=== PATIENT | male | born 1950 | race Caucasian/White ===

== ENCOUNTER 2016-08-03 15:57 | Observation (INO) ==
--- NOTE | 2016-08-03 18:03 | EKG Report ---
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
[2016-08-03 18:08] LABS: Basophils # 0.1 10*3/uL (0.0-0.2); Basophils % 0.7 % (0.0-0.8); Eosinophils % 0.5 % (0.00-10.9); Hematocrit 41.4 VOL% (42.0-52.0); Hemoglobin 13.7 GM/DL (14.0-18.0); Immature Granulocytes % 0.4 %; Immature Granulocytes Absolute 0.03 #; Lymphocytes # 1.6 10*3/uL (1.4-4.0); Lymphocytes % 19.6 % (21.2-54.2); Mean Corpuscular HGB Conc 33.1 GM/DL (32-36); Mean Corpuscular Hemoglobin 28 PG (27-34); Mean Corpuscular Volume 84.7 FL (87-102); Mean Platelet Volume 9.9 FL (9.6-12.0); Monocytes # 0.6 10*3/uL (0.11-0.8); Monocytes % 7.1 % (1.7-12.7); Neutrophils # 5.9 10*3/uL (1.4-7.4); Neutrophils % 71.7 % (38.7-73.9); Platelet Count 229 T/CUMM (130-400); Red Blood Count 4.89 MC/CUMM (3.8-5.5); Red Cell Distribution Width 14.5 % (9.3-17.3); White Blood Count 8.3 T/CUMM (4-12)
[2016-08-03 18:47] LABS: Alanine Aminotransferase 13 U/L (16-61); Albumin 3.4 G/DL (3.4-5.0); Alkaline Phosphatase 50 U/L (45-117); Aspartate Amino Transferase 15 U/L (0-37); Bilirubin,Total < 0.39 MG/DL (0.2-1.0); Blood Urea Nitrogen 10 MG/DL (7-18); Calcium 8.4 MG/DL (8.5-10.1); Glucose 100 MG/DL (74-106); Osmolality,Calculated 281.1 MOS/KG (273-304); Potassium 3.9 MMOL/L (3.5-5.1); Sodium 142 MMOL/L (136-145); Total Protein 6.9 G/DL (6.4-8.3); Troponin I Only < 0.015 NG/ML (0.00-0.045)
[2016-08-03] MEDS ORDERED: MAGNESIUM SULF RIDER 4 GM in PREMIX 1 EACH IV PRN (18:51)
[2016-08-03] MEDS ORDERED: MAGNESIUM SULF RIDER 2 GM in PREMIX 1 EACH IV PRN (18:51)
[2016-08-03] MEDS ORDERED: DEXTROSE 50% 25 GM/50 ML VIAL IV PRN (18:51)
[2016-08-03] MEDS ORDERED: GLUCAGON 1 MG VIAL IM PRN (18:51)
--- NOTE | 2016-08-03 19:20 | Emergency Department Note ---
IChandana Brittany, am scribing for, and in the presence of, Maureen Carrero DO 17:42. IMagan Whitney, DO, personally performed the services described in this documentation, ascribed by Karlie Ellington in my presence, and it is both accurate and complete 920 . Arrival - Arrival Chief Complaint: Syncope Stated Complaint: TRANSFER FROM [facility] Nursing Triage Note: TRANSFER FROM [facility] FROM [facility] FOR SYNCOPAL EPISODE Mode of Arrival: Stretcher Limitations: No Limitations Source: Patient, Significant other, RN Notes Reviewed Time Seen by Provider: 08/03/16 17:16 - History of Present Illness HPI Narrative: Patient is a 66 y/o white male presenting to the ED by EMS from [facility] [place], [place] for further evaluation of syncopal episode that occurred earlier today. Patient is unable to recall episode earlier so his at the bedside will provide the history. reports that patient and her son were outside working on a water leak at their [facility] trailer. In the middle of getting their son to run the water once again, patient was standing propped up against their [facility] trailer. She states that she momentarily took her eyes off of him to do something and upon turning around, patient had passed out, fell to the ground and hit the right side of his head. She estimates that patient was out for a minute or so and upon coming to, was confused briefly. and son then called EMS with which they presented to [facility] ER. Patient reports that he was seen earlier this week at [facility] for Chest Pain and Shortness of Breath in which he had a full workup and all was found to be negative and he was DC'd home. Patient states he did feel "lightheaded" prior to syncopal episode occurring, but denies experiencing any chest pain or shortness of breath. Patient reports having a severe right sided headache at current and contributes this to hitting his head during the syncopal episode earlier. Patient has a history of Pacemaker placement per Dr. Reid secondary to bradycardia. Patient reports that earlier in the week he did have an episode of polyuria which is unusual for him and is unsure if this was attributed to episode of chest pain experienced. He denies any urination problems at current. At the transferring facility patient was noted to have a negative head CT, but was transferred here for further evaluation and placement on heart monitor. reports that since patient lost his job in March he's had trouble with fatigue. Patient denies history of MD. He is currently on an ASA a day. Patient confirms compliance with medications. Patient reports a Colon Rupture sometime last year. He was placed on Metoprolol for PVC's experienced after Pacemaker placement. He has no other complaint/pain. Onset (ago): unknown Consistency: now resolved Allergies/Adverse Reactions: Allergies Allergy/AdvReac Type Severity Reaction Status Date / Time No Known Allergies Allergy Unverified 08/03/16 15:59 Home Medications: Home Medications Medication Instructions Recorded Confirmed Type Atorvastatin [Lipitor] 10 mg PO QAM 02/05/15 08/03/16 History Fenofibrate [Tricor] 145 mg PO BEDTIME 02/05/15 08/03/16 History Losartan [Cozaar] 50 mg PO QAM 02/05/15 08/03/16 History Tamsulosin [Flomax] 0.4 mg PO BEDTIME 02/05/15 08/03/16 History metFORMIN [Glucophage] 500 mg PO BEDTIME 02/05/15 08/03/16 History Metoprolol Succinate 25 mg PO BID 12/12/15 08/03/16 History Aspirin EC Tab 81 mg PO QAM 01/10/16 08/03/16 History Theophylline ER Cap (24 Hr) 200 mg PO BEDTIME 01/19/16 08/03/16 History [Jaden-24] Polyethylene Glycol Powder 17 gm PO BID powder 01/25/16 08/03/16 Rx [Miralax] glyBURIDE [Glyburide] 5 mg PO DAILY 08/03/16 08/03/16 History Review of System - Review of System 12 point system: reviewed and no additional remarkable complaints except as stated - Review of System Constitutional: Absent: chills, fever Eyes: Absent: vision change Head/Ears/Nose/Throat: Absent: nasal drainage, sore throat Respiratory: Absent: respiratory distress Cardiovascular: Present: syncope. Absent: chest pain, palpitations Gastrointestinal: Absent: abdominal pain, nausea, vomiting, diarrhea, constipation Genitourinary male: Absent: urgency, dysuria, frequency Musculoskeletal: Absent: arm pain, back pain, leg pain, neck pain Skin: Absent: rash Neurological: Present: as per HPI, headache, confusion. Absent: numbness, paresthesias Psychiatric: Absent: anxiety, depression Hematological/Lymphatic: Absent: easy bleeding, easy bruising Medical,Surgical,& Family Hx - Medical History Cardio: History of: Hypertension, Pacemaker (january 2015), Cardiovascular Problems (ablation) HEENT: History of: Ear Problem (REPAIR OF RUPTURED EAR DRUM TO LEFT SIDE), Eye Problem (cataracts) Endocrine: History of: Diabetes Mellitus (NIDDM) (control with pill), Dyslipidemia Respiratory: History of: Obstructive Sleep Apnea Genitourinary: History of: Kidney Stones (about 27 years ago), Prostate Problems (enlarge prostate diagnosed 30 years ago) Gastrointestinal: History of: GI Problems (bowel rupture 3yrs ago) Musculoskeletal: History of: Back/Neck Problems (neck surgery) - Surgical History Thoracic Surgeries: Patient denies;: Organ Transplant, Lobectomy Neurologic Surgeries: Patient denies: Neurologic Surgery HEENT Surgeries: Surgical HX of: Thyroid Surgery, Tonsilectomy & Adenoidectomy Comment Only: Eye Surgery (catarack surgery) Abdominal Surgeries: Surgical HX of: Appendectomy, Cholecystectomy Reproductive Surgeries: Comment Only: Prostate Surgery (enlarger prostate) Orthopedic Surgeries: Surgical HX of;: Orthopedic Surgery (left knee repair) - Family History Family History: Reports;: Family Cancer (father), Family Diabetes (mother), Family Heart Disease (mother), Family Hypertension (mother), Family Stroke ( father, mother) Denies;: Family Anesthesia Reaction, Family Psychiatric Problems - Social History Smoking Status: Former smoker Frequency of Alcohol Use: None Type of Drug Use: None Exam Vital Signs: Vital Signs Temperature 96.1 F L 08/03/16 15:59 Pulse Rate 68 08/03/16 15:59 Respiratory Rate 22 08/03/16 15:59 Blood Pressure 137/81 08/03/16 15:59 O2 Sat by Pulse Oximetry 99 08/03/16 15:59 - General General appearance: alert, in no apparent distress - Head Head exam: Present: atraumatic, normocephalic, normal inspection - Eye Eye exam: Present: PERRL, EOMI, nystagmus (left beating nystagmus), other (head impulse test negative, doll's eye test normal). Absent: normal appearance - ENT ENT exam: Present: normal exam, normal oropharynx - Neck Neck exam: Present: normal inspection, full ROM, trachea midline - Expanded Expanded Neck Exam Neck exam focused ED: Absent: JVD - Chest Chest inspection: Present: normal inspection, symmetric chest wall rise - Respiratory Respiratory exam: Present: normal lung sounds bilaterally. Absent: rales, rhonchi, wheezes - Cardiovascular Cardiovascular exam: Present: regular rate, normal rhythm, normal heart sounds. Absent: murmur, rubs, gallop, JVD - Abdominal Exam Abdominal exam: Present: soft, normal bowel sounds. Absent: distention, tenderness - Extremities Exam Extremities exam: Present: normal inspection. Absent: pedal edema - Back Exam Back exam: Present: normal inspection - Neurological Exam Neurological exam: Present: alert, oriented X3, CN II-XII intact. Absent: motor sensory deficit - Psychiatric Psychiatric exam: Present: normal affect, normal mood - Skin Skin exam: Present: warm, dry, intact, normal color Course Course Narrative: Discussed the case with patient at length. He appears stable currently. However his story is very concerning given he had recent chest pain on Friday and now has syncope. His chart review reveals sick sinus syndrome which is why he has a pacemaker. I have ordered labs here. And discussed the case with Dr. Esparza the overnight houseperson online content coordinator. He will be admitted for obs. - Reevaluation(s) Reevaluation #1: Patient is still doing well still no pain - Consultations Consultation #1: Cardiology Dr. Esparza Results - Labs CBC & BMP: 08/03/16 17:56 08/03/16 17:56 Lab Results: I have reviewed the patients labs Labs: Laboratory Tests 08/03/16 17:56 WBC 8.3 RBC 4.89 Hgb 13.7 L Hct 41.4 L MCV 84.7 L Plt Count 229 Lymph % (Auto) 19.6 L Laboratory Tests 08/03/16 08/03/16 08/03/16 17:56 17:56 17:56 Sodium 142 Potassium 3.9 Chloride 111 H Carbon Dioxide 25 BUN 10 Creatinine 1.30 Glucose 100 Calcium 8.4 L AST 15 ALT 13 L Total Creatine Kinase 65 Troponin I < 0.015 B-Natriuretic Peptide 33 Albumin/Globulin Ratio 0.9 L Theophylline 4.9 L Laboratory Tests 08/03/16 17:56 Sodium 142 Potassium 3.9 Chloride 111 H Carbon Dioxide 25 BUN 10 Creatinine 1.30 Calcium 8.4 L ALT 13 L Total Creatine Kinase 65 Troponin I < 0.015 Total Protein 6.9 Albumin/Globulin Ratio 0.9 L - Diagnostic Findings Procedure: Chest x-ray: image reviewed by me, report reviewed by me (normal from OSH) Disposition Clinical Impression: Syncope and collapse Case discussed with: patient Disposition: Still a Patient Condition: Stable
[2016-08-03] MEDS: ENOXAPARIN 40 MG/0.4 ML SYRINGE SUBCUT SCH (21:14)
[2016-08-03 22:02] LABS: Troponin I Only < 0.015 NG/ML (0.00-0.045)
[2016-08-04 05:16] LABS: Troponin I Only < 0.015 NG/ML (0.00-0.045)
--- NOTE | 2016-08-04 09:38 | Cardiology History & Physical ---
Assessment and Plan (1) Syncope and collapse Status: Acute Assessment and plan: 1. 66-year-old overweight WF with hypertension, diabetes, JESSICA (reports he uses his CPAP regularly), history of diverticulitis with significant colon removal for this and follow-up surgeries, chronic orthostasis with episode of syncope January 2015 when he is noted to have some modest bradycardia and had dual- chamber pacemaker placed by Dr. Qureshi for SSS (reportedly his orthostasis/ dyspnea improved after that), who now presents with syncopal episode with prodrome of dizziness. 2. Chronic chest discomfort with exertional component, reportedly had unremarkable heart catheterization at [facility] about 2014; please obtain records ( the report Dr. Reid got these in the past from [facility], but they are not available , I do not see them the external record on our EMR, or in Dr. Reid's note at the office) 3. Flat and upright blood pressure and heart rate here showed that he is tilt negative currently. 4. Interrogate pacemaker to evaluate if he is having atrial fibrillation episodes, and to ensure it is working properly 5. Pulmonary hypertension with PA pressure over 60 reportedly found to [facility], but last echo here shows PA pressures in the 30s though there was some mild right-sided enlargement. 6. Chronic dyspnea on exertion reportedly improved after pacemaker placement and after starting theophylline; he is a very remote smoker per 7. Consider GI consult; if no other cause for his symptoms can be found, I am uncertain whether he had enough colon removed, that it could explain some of his symptoms? Current Visit: Yes (2) Chest pain Status: Acute Current Visit: No (3) Diabetes mellitus Status: Chronic Current Visit: No (4) Hypertension Status: Chronic Current Visit: No (5) JESSICA (obstructive sleep apnea) Status: Chronic Current Visit: No History of Present Illness Chief complaint: syncope History of present illness: Mr. Davis is a 66 year old male who was walking around in his house and developed dizziness and subsequently woke up on the floor. Apparently had fairly brief syncope. He felt washed out a week when he awakened. Several days prior he had been in the emergency room at an outside facility with chest discomfort, but he has had none in the last couple of days. After taking further history, he has had dyspnea on exertion and exertional chest discomfort for years, and underwent heart catheterization wrote [facility] reportedly in 2014 which showed "no significant blockage". In January 2015 he underwent pacemaker placement by Dr. Qureshi for sick sinus syndrome. It appears he had some modest bradycardia and that pacemaker was placed due to his syncope. On further history is also reportedly had atrial fibrillation with RVR causing similar episodes about 15 years ago when he had ablation by Dr. Webster in [place]. I also note he had extensive history of problems with diverticulitis and eventually had a significant amount of colon removed by Dr. Irma Rivas. He also had follow-up repeat surgeries for this and will saw Dr. Yu when at one point he had some ischemia in his intestines. He had pulmonary hypertension and echo at [facility], but last one here is pulmonary pressures were not that high being in the low 30s systolic range. He did have a little right ventricular enlargement and has no history of PE or DVT. He denies any history of TIA or stroke. Denies any history of blood clots or bleeding problems. He reports some chronic orthostasis. 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 Home Medications Medication Instructions Recorded Confirmed Type Atorvastatin [Lipitor] 10 mg PO QAM 02/05/15 08/03/16 History Fenofibrate [Tricor] 145 mg PO BEDTIME 02/05/15 08/03/16 History Losartan [Cozaar] 50 mg PO QAM 02/05/15 08/03/16 History Tamsulosin [Flomax] 0.4 mg PO BEDTIME 02/05/15 08/03/16 History metFORMIN [Glucophage] 500 mg PO BEDTIME 02/05/15 08/03/16 History Metoprolol Succinate 25 mg PO BID 12/12/15 08/03/16 History Aspirin EC Tab 81 mg PO QAM 01/10/16 08/03/16 History Theophylline ER Cap (24 Hr) 200 mg PO BEDTIME 01/19/16 08/03/16 History [Jaden-24] Polyethylene Glycol Powder 17 gm PO BID powder 01/25/16 08/03/16 Rx [Miralax] glyBURIDE [Glyburide] 5 mg PO DAILY 08/03/16 08/03/16 History Allergies Allergy/AdvReac Type Severity Reaction Status Date / Time No Known Allergies Allergy Unverified 08/03/16 15:59 Medical,Surgical,& Family Hx - Medical History Cardio: History of: Hypertension, Pacemaker (january 2015), Cardiovascular Problems (ablation) HEENT: History of: Ear Problem (REPAIR OF RUPTURED EAR DRUM TO LEFT SIDE), Eye Problem (cataracts) Endocrine: History of: Diabetes Mellitus (NIDDM) (control with pill), Dyslipidemia Respiratory: History of: Obstructive Sleep Apnea Genitourinary: History of: Kidney Stones (about 27 years ago), Prostate Problems (enlarge prostate diagnosed 30 years ago) Gastrointestinal: History of: GI Problems (bowel rupture 3yrs ago) Musculoskeletal: History of: Back/Neck Problems (neck surgery) - Surgical History Thoracic Surgeries: Patient denies;: Organ Transplant, Lobectomy Neurologic Surgeries: Patient denies: Neurologic Surgery HEENT Surgeries: Surgical HX of: Thyroid Surgery, Tonsilectomy & Adenoidectomy Comment Only: Eye Surgery (catarack surgery) Abdominal Surgeries: Surgical HX of: Abdominal Surgery (repair of: Perforation with colostomy and subsequent reversal), Appendectomy, Cholecystectomy Reproductive Surgeries: Comment Only: Prostate Surgery (enlarger prostate) Orthopedic Surgeries: Surgical HX of;: Orthopedic Surgery (left knee repair) - Family History Family History: Reports;: Family Cancer (father), Family Diabetes (mother), Family Heart Disease (mother), Family Hypertension (mother), Family Stroke ( father, mother) Denies;: Family Anesthesia Reaction, Family Psychiatric Problems - Social History Smoking Status: Former smoker Frequency of Alcohol Use: None Type of Drug Use: None Cardiology Physical Exam - Constitutional Vitals: Vital Signs Temp Pulse Resp BP Pulse Ox 97.8 F 60 20 118/62 97 08/04/16 08:00 08/04/16 08:00 08/04/16 08:00 08/04/16 08:00 08/04/16 08:00 Intake and Output 08/03/16 08/04/16 08/04/16 23:59 07:59 15:59 Intake Total 250 / 250 Output Total 1504 / 1504 Balance -1254 / -1254 Intake: Oral 250 / 250 Output: Urine 1504 / 1504 Other: Voiding Method Urinal Weight 108.862 kg 108.862 kg Patient Weight 08/04/16 23:59 Weight 108.862 kg General appearance: no acute distress, over weight - Head Head exam: Present: normal inspection, normocephalic, atraumatic - Neck Neck exam: Present: normal inspection - Respiratory Respiratory exam: Present: clear to auscultation bilaterally. Absent: stridor, wheezes - Cardiovascular Cardiovascular exam: Present: regular rate and rhythm. Absent: diastolic murmur , rubs, systolic murmur - GI/Abdominal GI/Abdominal exam: Present: soft. Absent: tenderness - Extremities Exam Extremities exam: Absent: edema - Neurological Exam Neurological exam: Present: alert, oriented X3, normal gait Result/EKG - Labs CBC & BMP: 08/03/16 17:56 08/03/16 17:56 Labs: Laboratory Results - last 24 hr 08/03/16 08/03/16 08/04/16 20:30 21:22 04:16 POC Glucose 87 Total Creatine Kinase 64 80 D CK-MB (CK-2) < 1.0 1.5 Troponin I < 0.015 < 0.015
[2016-08-04] MEDS: SODIUM CHLORIDE 0.9% 1,000 ML IV SCH ×2 (11:40→21:57)
[2016-08-04] MEDS: ASPIRIN EC 81 MG TABLET PO SCH (11:40)
--- NOTE | 2016-08-04 20:01 | Event Note ---
Mr. Davis's pacemaker interrogation showed no evidence of atrial fibrillation or tachycardia and was complete normal function of his pacemaker. There is not seem to be any suggestion that his syncope was caused by cardiac etiology. Although he has had some orthostasis, he was tilt negative on evaluation at the hospital today.
[2016-08-04] MEDS ORDERED: METOPROLOL SUCCINATE XL 25 MG TABLET PO SCH (21:00)
[2016-08-04] MEDS: ENOXAPARIN 40 MG/0.4 ML SYRINGE SUBCUT SCH (22:08)
[2016-08-04] MEDS: TAMSULOSIN 0.4 MG CAPSULE PO SCH (22:10)
[2016-08-04] MEDS: metFORMIN 500 MG TABLET PO SCH (22:10)
[2016-08-04] MEDS: THEOPHYLLINE ER (24 HR) 200 MG CAPSULE PO SCH (22:10)
[2016-08-04] MEDS: POLYETHYLENE GLYCOL POWDER 17 GM PACK PO SCH (22:11)
[2016-08-04] MEDS: FENOFIBRATE 145 MG TABLET PO SCH (22:36)
[2016-08-05] MEDS: ASPIRIN EC 81 MG TABLET PO SCH (08:34)
[2016-08-05] MEDS: METOPROLOL SUCCINATE XL 25 MG TABLET PO SCH (08:34)
[2016-08-05] MEDS: POLYETHYLENE GLYCOL POWDER 17 GM PACK PO SCH ×2 (08:34→20:20)
[2016-08-05] MEDS: SODIUM CHLORIDE 0.9% 1,000 ML IV SCH ×2 (08:34→18:26)
[2016-08-05] MEDS: glyBURIDE 5 MG TABLET PO SCH (08:35)
[2016-08-05] MEDS: ATORVASTATIN 10 MG TABLET PO SCH (08:35)
[2016-08-05] MEDS ORDERED: LOSARTAN 50 MG TABLET PO SCH (09:00)
--- NOTE | 2016-08-05 14:15 | Cardiology Progress Note ---
Cardiology - PN: Subj Interval history: Cardiology note 66-year-old man transferred from the [facility] ER August 03 with weakness no energy and near syncope. Status post dual-chamber pacemaker January [address] Reid Patient had negative heart cath at [facility] [place] [address] Mancilla. Pacemaker interrogation yesterday showed normal pacing and sensing and no episodes of recurrent atrial fib. Monitor to date has been benign. Blood pressure is 130/74 in the right arm by me. O2 sat 99 on 2 L cannula. Decreased breath sounds but clear. Regular rhythm no murmur or gallop. Abdomen soft benign No leg edema He does have obstructive sleep apnea and wears a CPAP mask 90. 6 feet 2 inches tall 242 pounds. Patient has lost 20 pounds since last spring. Status post partial colectomy by Dr. Solis for diverticulitis. Long-standing hypertension. 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 He had near syncope with chest pain on Friday which prompted the ER visit. Lab data White count 8.3 hemoglobin 13.7 hematocrit 41.4 MCV 84.7 Sodium 142 potassium 3.9 chloride 111 CO2 25 BUN 10 creatinine 1.30 negative troponin Theophylline 4.9 Plan Monitor Check blood pressure standing and supine Exercise cardiac stress test in a.m. CPAP mask nightly. Probable home tomorrow\ Dr. Darrell Lynn in [facility] local physician Exam (Progress Note) - Constitutional Vitals: Period Temp Pulse Resp BP Sys/Oseguera Pulse Ox Last 24 Hr 97.2 F-98.3 F 60-71 18-20 100-141/59-71 96-99 Result/EKG - Labs CBC & BMP: 08/03/16 17:56 08/03/16 17:56 Labs: Laboratory Results - last 24 hr 08/04/16 08/05/16 22:00 07:51 POC Glucose 85 90
[2016-08-05] MEDS: THEOPHYLLINE ER (24 HR) 200 MG CAPSULE PO SCH (20:19)
[2016-08-05] MEDS: metFORMIN 500 MG TABLET PO SCH (20:19)
[2016-08-05] MEDS: FENOFIBRATE 145 MG TABLET PO SCH (20:19)
[2016-08-05] MEDS: ENOXAPARIN 40 MG/0.4 ML SYRINGE SUBCUT SCH (20:19)
[2016-08-05] MEDS: TAMSULOSIN 0.4 MG CAPSULE PO SCH (20:19)
[2016-08-06] MEDS: SODIUM CHLORIDE 0.9% 1,000 ML IV SCH ×2 (04:13→14:51)
[2016-08-06 06:07] LABS: Basophils # 0.1 10*3/uL (0.0-0.2); Basophils % 0.9 % (0.0-0.8); Eosinophils # 0.2 10*3/uL (0.0-0.87); Eosinophils % 3.2 % (0.00-10.9); Hematocrit 39.6 VOL% (42.0-52.0); Hemoglobin 13.2 GM/DL (14.0-18.0); Immature Granulocytes % 0.2 %; Immature Granulocytes Absolute 0.01 #; Lymphocytes # 1.5 10*3/uL (1.4-4.0); Lymphocytes % 28.6 % (21.2-54.2); Mean Corpuscular HGB Conc 33.3 GM/DL (32-36); Mean Corpuscular Hemoglobin 28 PG (27-34); Mean Platelet Volume 10.1 FL (9.6-12.0); Monocytes # 0.5 10*3/uL (0.11-0.8); Monocytes % 9.7 % (1.7-12.7); Neutrophils # 3.1 10*3/uL (1.4-7.4); Neutrophils % 57.4 % (38.7-73.9); Platelet Count 201 T/CUMM (130-400); Red Blood Count 4.66 MC/CUMM (3.8-5.5); Red Cell Distribution Width 14.3 % (9.3-17.3); White Blood Count 5.4 T/CUMM (4-12)
[2016-08-06 06:41] LABS: Osmolality,Calculated 277.3 MOS/KG (273-304); Potassium 4.1 MMOL/L (3.5-5.1)
[2016-08-06] MEDS ORDERED: REGADENOSON 0.4 MG/5 ML SYRINGE IV ONE (09:18)
[2016-08-06] MEDS: glyBURIDE 5 MG TABLET PO SCH (10:32)
--- NOTE | 2016-08-06 10:39 | Cardiology Progress Note ---
<Samantha Lee E - Last Filed: 08/06/16 10:28> Assessment and Plan - Time spent with patient Time spent with patient: Greater than 30 minutes (1) Hypertension Status: Chronic Assessment and plan: Adequately controlled. Current Visit: No (2) Diabetes mellitus Status: Chronic Assessment and plan: Continue current plan of care Current Visit: No (3) JESSICA (obstructive sleep apnea) Status: Chronic Assessment and plan: Uses sleep device appropriately. Continue current plan of care Current Visit: No (4) Syncope and collapse Status: Acute Assessment and plan: No additional syncope since admission. Patient reports that it is positional and when he stands abruptly is when he experiences the syncopal episodes. However, if he takes his time standing up, although he gets lightheaded and he does not experience syncope. His orthostatic vital signs are normal. He does take Flomax each evening. Query as to whether this may be causing some orthostasis. Current Visit: No (5) Chest pain Status: Acute Assessment and plan: Cardiac biomarkers negative. N.p.o. for stress testing this morning Current Visit: No (6) Status post placement of cardiac pacemaker Status: Chronic Assessment and plan: Stable. Current Visit: No Cardiology - PN: Subj Interval history: 66-year-old man transferred from the [place] ER August 03 with weakness no energy and near syncope. Status post dual-chamber pacemaker January [address] Reid Patient had negative heart cath at [facility] in [address] Mancilla. Pacemaker interrogation yesterday showed normal pacing and sensing and no episodes of recurrent atrial fib. Monitor to date has been benign. Blood pressure is 122/74 in the right arm by me. Decreased breath sounds but clear. Regular rhythm, no murmur or gallop. Abdomen soft benign No leg edema He does have obstructive sleep apnea and wears a CPAP mask. 6 feet 2 inches tall 242 pounds. Patient has lost 20 pounds since last spring. Status post partial colectomy by Dr. Solis for diverticulitis. Long-standing hypertension. 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 He had near syncope with chest pain on Friday which prompted the ER visit. No recurrent syncope since admission. No orthostasis noted. Lab data White count 5.4 hemoglobin 13.2 hematocrit 39.6 MCV 85 Sodium 141 potassium 4.1 chloride 111 CO2 24 BUN 10 creatinine 1.10 negative troponin Plan NPO for stress testing today. CPAP mask nightly. Dr. Darrell Lynn in [place] local physician Exam (Progress Note) - Constitutional Vitals: Period Temp Pulse Resp BP Sys/Oseguera Pulse Ox Last 24 Hr 97.1 F-98.4 F 60-74 16-20 112-141/57-77 96-99 Exam: General: [Appears well with no apparent distress.] [Pleasant and cooperative. ] [Appears comfortable.] HEENT: [PERRL, normocephalic, atraumatic. Mucous membranes moist. No jaundice noted. Conjunctiva moist and clear, sclerae anicteric] Neck: No JVD/HJR, no thyromegaly or lymphadenopathy noted. No carotid bruit appreciated Cardiac: [Regular rate and rhythm.] [No murmur rub or gallop.] Lungs: [Clear to auscultation without accessory muscle use to assist the respiratory pattern.] Not requiring oxygen Abdomen: Soft, bowel sounds normoactive. Nontender and nondistended. No abdominal bruit or thrill noted. No masses noted. Musculoskeletal: No fluid collection. Decreased range of motion is noted. Extremities: No clubbing, cyanosis noted. [ No edema noted.] Upper extremity pulses 2+. Lower extremity pulses 2+. Capillary refill less than 3 seconds. Skin: No unusual lesions or rashes. No skin breakdown appreciated. Neuro: Awake, alert and oriented 3. Moves all extremities well without hemiparesis or paralysis. No essential tremor is appreciated. Result/EKG - Labs CBC & BMP: 08/06/16 05:32 08/06/16 05:32 Lab Results: I have reviewed the past 24 hour labs Labs: Laboratory Results - last 24 hr 08/05/16 08/05/16 08/06/16 16:31 20:21 05:32 WBC 5.4 D RBC 4.66 Hgb 13.2 L Hct 39.6 L MCV 85.0 L MCH 28 MCHC 33.3 RDW 14.3 Plt Count 201 MPV 10.1 Neut % (Auto) 57.4 Lymph % (Auto) 28.6 [place] % (Auto) 9.7 Eos % (Auto) 3.2 Baso % (Auto) 0.9 H Neut # (Auto) 3.1 Lymph # (Auto) 1.5 [place] # (Auto) 0.5 Eos # (Auto) 0.2 Baso # (Auto) 0.1 Immature Gran % 0.2 Nucleated RBC % 0.0 Immature Gran # 0.01 Nucleated RBCs # 0.00 Sodium Potassium Chloride Carbon Dioxide Anion Gap BUN Creatinine GFR Calculation BUN/Creatinine Ratio Glucose POC Glucose 102 89 Calculated Osmolality Calcium 08/06/16 08/06/16 05:32 07:28 WBC RBC Hgb Hct MCV MCH MCHC RDW Plt Count MPV Neut % (Auto) Lymph % (Auto) [place] % (Auto) Eos % (Auto) Baso % (Auto) Neut # (Auto) Lymph # (Auto) [place] # (Auto) Eos # (Auto) Baso # (Auto) Immature Gran % Nucleated RBC % Immature Gran # Nucleated RBCs # Sodium 141 Potassium 4.1 Chloride 111 H Carbon Dioxide 24 Anion Gap 10.1 BUN 10 Creatinine 1.10 GFR Calculation 98 BUN/Creatinine Ratio 9.00 Glucose 70 L POC Glucose 71 L Calculated Osmolality 277.3 Calcium 8.0 L - EKG EKG results: interpreted by me EKG shows: sinus rhythm Specialty Discharge - Follow Up or Referrals Follow up with: Jose M Chun MD [Physician] - (Please refer for syncope. Please try to get appointment in the next few weeks.) Vito Reid MD [Physician] - (Keep appointment August 2016) Darrell Lynn [Physician] - (F/U in the next 1-2 weeks) <Timothy Senior - Last Filed: 08/06/16 15:25> Cardiology - PN: Subj Interval history: Cardiology addendum. Patient examined and chart reviewed. No dizziness. Telemetry shows predominantly atrial pacing without ectopy. CPAP mask nightly reemphasized. Lexiscan stress test today. Home if negative Exam (Progress Note) - Constitutional Vitals: Period Temp Pulse Resp BP Sys/Oseguera Pulse Ox Last 24 Hr 97.1 F-98.4 F 60-74 16-20 112-136/57-82 96-99 Result/EKG - Labs CBC & BMP: 08/06/16 05:32 08/06/16 05:32 Labs: Laboratory Results - last 24 hr 08/05/16 08/05/16 08/06/16 16:31 20:21 05:32 WBC 5.4 D RBC 4.66 Hgb 13.2 L Hct 39.6 L MCV 85.0 L MCH 28 MCHC 33.3 RDW 14.3 Plt Count 201 MPV 10.1 Neut % (Auto) 57.4 Lymph % (Auto) 28.6 [place] % (Auto) 9.7 Eos % (Auto) 3.2 Baso % (Auto) 0.9 H Neut # (Auto) 3.1 Lymph # (Auto) 1.5 [place] # (Auto) 0.5 Eos # (Auto) 0.2 Baso # (Auto) 0.1 Immature Gran % 0.2 Nucleated RBC % 0.0 Immature Gran # 0.01 Nucleated RBCs # 0.00 Sodium Potassium Chloride Carbon Dioxide Anion Gap BUN Creatinine GFR Calculation BUN/Creatinine Ratio Glucose POC Glucose 102 89 Calculated Osmolality Calcium 08/06/16 08/06/16 05:32 07:28 WBC RBC Hgb Hct MCV MCH MCHC RDW Plt Count MPV Neut % (Auto) Lymph % (Auto) [place] % (Auto) Eos % (Auto) Baso % (Auto) Neut # (Auto) Lymph # (Auto) [place] # (Auto) Eos # (Auto) Baso # (Auto) Immature Gran % Nucleated RBC % Immature Gran # Nucleated RBCs # Sodium 141 Potassium 4.1 Chloride 111 H Carbon Dioxide 24 Anion Gap 10.1 BUN 10 Creatinine 1.10 GFR Calculation 98 BUN/Creatinine Ratio 9.00 Glucose 70 L POC Glucose 71 L Calculated Osmolality 277.3 Calcium 8.0 L
[2016-08-06] MEDS: POLYETHYLENE GLYCOL POWDER 17 GM PACK PO SCH (10:43)
[2016-08-06] MEDS: ASPIRIN EC 81 MG TABLET PO SCH (10:43)
[2016-08-06] MEDS: METOPROLOL SUCCINATE XL 25 MG TABLET PO SCH (10:43)
[2016-08-06] MEDS: ATORVASTATIN 10 MG TABLET PO SCH (10:43)
--- NOTE | 2016-08-06 10:45 | Event Note ---
Underwent Lexiscan stress testing this morning without complaints of chest pain , heaviness, tightness or shortness of breath. No syncope or presyncope. Minimally inverted T waves noted V3-V4 after Beena scan administered. No other ST changes noted. Unifocal PVC noted in the recovery phase. Blood pressure remained stable throughout procedure. Now, patient will transition to nuclear medicine for final scan. Dr. Senior to read, interpreted and advise.
[2016-08-06 12:04] VITALS: BP 132/82
--- NOTE | 2016-08-06 13:20 | Nuclear Medicine Report ---
PROCEDURE: LEXISCAN CARDIOLITE GATED SPECT INITIAL IMPRESSION: 1. 66-YEAR-OLD MAN WITH ATYPICAL CHEST PAIN. 2. ABNORMAL EKG. 3. PAROXYSMAL ATRIAL FIBRILLATION. FINAL IMPRESSION: NORMAL LEXISCAN CARDIOLITE STRESS TEST. I. DESCRIPTION OF PROCEDURE: The patient received 10.0 mCi of technetium-99m Cardiolite IV and res t imaging was obtained in a routine manner 20 minutes later. The patient then walk for 4 minutes on a low level treadmill and received 0.4 mg IV Lexiscan followed by 30.0 mCi of Technetium-99m Cardio lite IV and pharmacologic stress imaging was obtained in a routine manner 20 minutes later. Serial electrocardiograms were performed. The initial blood pressure was 122/76 and it was 140/72 immediat demetria post Lexiscan. The peak heart rate was 86 beats per minute. II. RESULTS: The patient had no chest pain or arrhythmias and tolerated Lexiscan infusion well. T he resting EKG demonstrates normal sinus rhythm with late transition across the precordium and ST-T wave changes. With pharmacologic stress, no diagnostic EKG changes occurred. No arrhythmias. Tomographic imaging demonstrates homogeneous uptake of radioisotope in all segments. There is no e vidence for ischemia or scar. Gated SPECT imaging demonstrates normal wall motion and thickening in all segments. The calculated ejection fraction is 58%. III. FINAL IMPRESSION: 1. CLINICALLY AND ELECTROGRAPHICALLY NEGATIVE. 2. SCINTIGRAPHICALLY NORMAL PERFUSION STUDY. IV. DISPOSITION: The patient should be reassured regarding the lack of any evidence for significan t coronary artery disease at this time. He had no chest pain or diagnostic EKG changes and tomograp hic imaging is normal. In addition, ventricular function is well preserved with ejection fraction o f 58%. This is a low risk scan. Continued medical therapy and risk factor modification recommended . Procedure performed and interpreted at [facility] Department of Radiology. CC: Timothy Senior M.D.
--- NOTE | 2016-08-06 14:23 | Discharge Summary ---
Hospital Course - Hospital Course Hospital Course: Mr. Davis is a 66 year old male who was admitted August 04, 2016 after experiencing syncope. History of hypertension, diabetes, JESSICA (reports he uses his CPAP regularly), history of diverticulitis with significant colon removal for this and follow-up surgeries, chronic orthostasis with episode of syncope January 2015 when he is noted to have some modest bradycardia and had dual- chamber pacemaker placed by Dr. Reid for SSS (reportedly his orthostasis/ dyspnea improved after that). During this little stay he underwent tests including interrogation of maker to evaluate if he was having atrial fibrillation. He had no arrythmia per pacemaker interrogation no on telemetry. He underwent stress testing and was found to have good results. He has chronic orthostasis. Echo revealed PA perssure 30s (improved per prior echo at [place] 2014). Records from [place] reviewed. Patient had [facility] 2014 - no CAD noted. Having felt nhe met maximal medical therapy, patient is being discharged home in stable condition. He is being given an appointment with Dr. Rodriguez to evaluate for positional syncope, orthostasis. He will also follow-up with Dr. Pak in the next 2-3 weeks. He has appointment with Dr. Reid August 2016. He is to keep his appointment. - Time spent with patient Time with patient DS: Less than 30 minutes Diagnosis - Discharge Diagnosis (1) Hypertension Status: Chronic (2) Diabetes mellitus Status: Chronic (3) JESSICA (obstructive sleep apnea) Status: Chronic (4) Syncope and collapse Status: Chronic (5) Chest pain Status: Resolved (6) Status post placement of cardiac pacemaker Status: Chronic Specialty Discharge - Follow Up or Referrals Follow up with: Jose M Chun MD [Physician] - (Please refer for syncope. Please try to get appointment in the next few weeks.) Darrell Lynn [Physician] - (F/U in the next 1-2 weeks) Vito Reid MD [Physician] - (Keep appointment August 2016) Discharge Plan - Discharge Data Disposition: Disch To Home/Self Care Condition at Discharge: Stable Discharge Diet: heart healthy Activity: resume usual activities as tolerated Hygiene: no restrictions Weight Bearing at Discharge: full weight bearing Driving: not until seen by doctor Contact your physician if you experience:: fever over 101, Difficulty voiding, Redness or swelling, Nausea/Vomiting, Shortness of breath, Bleeding, pain uncontrolled by pain medications - Discharge Medications Continue metFORMIN [Glucophage] 500 mg PO BEDTIME Tamsulosin [Flomax] 0.4 mg PO BEDTIME Losartan [Cozaar] 50 mg PO QAM Fenofibrate [Tricor] 145 mg PO BEDTIME Atorvastatin [Lipitor] 10 mg PO QAM Metoprolol Succinate 25 mg PO BID Aspirin EC Tab 81 mg PO QAM Theophylline ER Cap (24 Hr) [Jaden-24] 200 mg PO BEDTIME Polyethylene Glycol Powder [Miralax] 17 gm PO BID powder glyBURIDE [Glyburide] 5 mg PO DAILY - Follow Up or Referral - Forms/Instructions Exam - Constitutional Vitals: Period Temp Pulse Resp BP Sys/Oseguera Pulse Ox Last 24 Hr 97.1 F-98.4 F 60-74 16-20 112-136/57-82 96-99 Exam: General: [Appears well with no apparent distress.] [Pleasant and cooperative. ] [Appears comfortable.] HEENT: [PERRL, normocephalic, atraumatic. Mucous membranes moist. No jaundice noted. Conjunctiva moist and clear, sclerae anicteric] Neck: No JVD/HJR, no thyromegaly or lymphadenopathy noted. No carotid bruit appreciated Cardiac: [Regular rate and rhythm.] [No murmur rub or gallop.] Lungs: [Clear to auscultation without accessory muscle use to assist the respiratory pattern.] Not requiring oxygen Abdomen: Soft, bowel sounds normoactive. Nontender and nondistended. No abdominal bruit or thrill noted. No masses noted. Musculoskeletal: No fluid collection. Decreased range of motion is noted. Extremities: No clubbing, cyanosis noted. [ No edema noted.] Upper extremity pulses 2+. Lower extremity pulses 2+. Capillary refill less than 3 seconds. Skin: No unusual lesions or rashes. No skin breakdown appreciated. Neuro: Awake, alert and oriented 3. Moves all extremities well without hemiparesis or paralysis. No essential tremor is appreciated. Discharge Results Labs on day of discharge: Labs from last 24 hours 08/06/16 08/06/16 08/06/16 07:28 05:32 05:32 WBC 5.4 D RBC 4.66 Hgb 13.2 L Hct 39.6 L MCV 85.0 L MCH 28 MCHC 33.3 RDW 14.3 Plt Count 201 MPV 10.1 Neut % (Auto) 57.4 Lymph % (Auto) 28.6 [place] % (Auto) 9.7 Eos % (Auto) 3.2 Baso % (Auto) 0.9 H Neut # (Auto) 3.1 Lymph # (Auto) 1.5 [place] # (Auto) 0.5 Eos # (Auto) 0.2 Baso # (Auto) 0.1 Immature Gran % 0.2 Nucleated RBC % 0.0 Immature Gran # 0.01 Nucleated RBCs # 0.00 Sodium 141 Potassium 4.1 Chloride 111 H Carbon Dioxide 24 Anion Gap 10.1 BUN 10 Creatinine 1.10 GFR Calculation 98 BUN/Creatinine Ratio 9.00 Glucose 70 L POC Glucose 71 L Calculated Osmolality 277.3 Calcium 8.0 L 08/05/16 08/05/16 20:21 16:31 WBC RBC Hgb Hct MCV MCH MCHC RDW Plt Count MPV Neut % (Auto) Lymph % (Auto) [place] % (Auto) Eos % (Auto) Baso % (Auto) Neut # (Auto) Lymph # (Auto) [place] # (Auto) Eos # (Auto) Baso # (Auto) Immature Gran % Nucleated RBC % Immature Gran # Nucleated RBCs # Sodium Potassium Chloride Carbon Dioxide Anion Gap BUN Creatinine GFR Calculation BUN/Creatinine Ratio Glucose POC Glucose 89 102 Calculated Osmolality Calcium - Imaging and Cardiology Cardiology Procedure: report reviewed by Procedure: Chest x-ray: report reviewed by DS: Provider Date of admission: 08/03/16 18:51 Primary care physician: . No PCP Attending physician on admission: Abdulaziz Salas Consults: 08/03/16 22:41 Consult to Pastoral Services [CONS] Routine Comment: Pastoral Screen: Request Middle Card Tender Visit Discharging clinician: Samantha Lee NP Expected date of discharge: 08/06/16
== END 2016-08-06 17:20 | disposition home or self-care (01) ==
LOC: EDBD → EDUNIT# → N.EDINP 15:57 → N.ED 15:57 → N.TELEN 19:31
PROVIDERS: ADMIT Internal Medicine Cardiovascular Disease; ATTEND Internal Medicine Cardiovascular Disease

== ENCOUNTER 2016-08-12 16:12 | Observation (INO) ==
--- NOTE | 2016-08-12 16:35 | EKG Report ---
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
[2016-08-12] MEDS ORDERED: ENOXAPARIN 100 MG/ML SYRINGE SUBCUT STA (16:42)
[2016-08-12] MEDS ORDERED: ENOXAPARIN 120 MG/0.8 ML SYRINGE SUBCUT ONE (16:47)
[2016-08-12] MEDS ORDERED: NITROGLYCERIN SL 0.4 MG TABLET SL STA (17:02)
[2016-08-12 17:06] LABS: Basophils # 0.1 10*3/uL (0.0-0.2); Basophils % 0.7 % (0.0-0.8); Eosinophils # 0.1 10*3/uL (0.0-0.87); Eosinophils % 1.4 % (0.00-10.9); Hematocrit 42.2 VOL% (42.0-52.0); Hemoglobin 14.2 GM/DL (14.0-18.0); Immature Granulocytes % 0.3 %; Immature Granulocytes Absolute 0.02 #; Lymphocytes # 1.7 10*3/uL (1.4-4.0); Lymphocytes % 23.7 % (21.2-54.2); Mean Corpuscular HGB Conc 33.6 GM/DL (32-36); Mean Corpuscular Hemoglobin 29 PG (27-34); Mean Corpuscular Volume 85.1 FL (87-102); Mean Platelet Volume 9.9 FL (9.6-12.0); Monocytes # 0.7 10*3/uL (0.11-0.8); Monocytes % 9.4 % (1.7-12.7); Neutrophils # 4.5 10*3/uL (1.4-7.4); Neutrophils % 64.5 % (38.7-73.9); Platelet Count 230 T/CUMM (130-400); Red Blood Count 4.96 MC/CUMM (3.8-5.5); Red Cell Distribution Width 14.5 % (9.3-17.3)
--- NOTE | 2016-08-12 17:19 | XRay Report ---
XR chest 1V portable Indication: Chest pain. Comparison: Chest x-ray 08/03/2016 Technique: Portable AP chest was performed. Findings: The heart size appears within normal limits. Cardiac pacemaker is unchanged. Pulmonary vasculature demonstrates no specific abnormality. Hilar structures demonstrate fairly symmetric appearance. The lungs appear clear. Bones and soft tissues demonstrate no evidence of acute pathology. Impression: 1. No evidence of acute pathology. 08/12/2016 5:15 PM PROCEDURE INTERPRETED AT [facility] DEPARTMENT OF RADIOLOGY Final Report Signed by: Dr. Eulalio Beaver
--- NOTE | 2016-08-12 17:35 | Emergency Department Note ---
Mitch Ruano Brooke, am scribing for, and in the presence of, Edward Emanuel MD 16:49. Jenae Ruano Phillip K, MD, personally performed the services described in this documentation, ascribed by Daylin Meyer in my presence, and it is both accurate and complete [id number] . Arrival - Arrival Chief Complaint: Chest Pain Stated Complaint: SOB Chest Pain ED Nursing Triage Note: midsternal chest pain onset 1300 - pt states that the pain is radiating to his back - pt states that he was in the hospital and had a stress test last week for same c/o - Dr Reid Mode of Arrival: Wheelchair Limitations: No Limitations Source: Patient, RN Notes Reviewed Time Seen by Provider: 08/12/16 16:37 - History of Present Illness HPI Narrative: Patient is a 66 year old male who presents to the ED with c/o chest pain that started around 1400 today. He says he was not doing anything exertional when the pain started and that he was sitting in his recliner. The chest pain is located in the left side of his chest. He describes the pain as "tightness" that radiates straight through to his back but no radiation to his neck or arms. He says the pain is not worsened with deep breaths. Patient has not taken anything for the pain and says he is still currently hurting. He does take ASA daily and has already had one today. Patient says he has also been coughing, nauseated, short of breath, and had a "cold sweat." He denies any vomiting or abdominal pain. He had similar pain, last week, and was given Nitro while in the ED and says it did help relieve the chest pain. Patient says Dr. Reid performed a stress test, last week, but he has not had a heart cath in about two years. He has a FHx of heart disease. He has PMHx of HTN, pacemaker, dyslipidemia, NIDDM, obstructive sleep apnea, kidney stones, enlarged prostate, bowel rupture(3 years ago), and back/neck problems. He is not a smoker. Onset (ago): hour(s) (2.5) Allergies/Adverse Reactions: Allergies Allergy/AdvReac Type Severity Reaction Status Date / Time No Known Allergies Allergy Unverified 08/03/16 15:59 Home Medications: Home Medications Medication Instructions Recorded Confirmed Type Atorvastatin [Lipitor] 10 mg PO QAM 02/05/15 08/12/16 History Fenofibrate [Tricor] 145 mg PO BEDTIME 02/05/15 08/12/16 History Losartan [Cozaar] 50 mg PO QAM 02/05/15 08/12/16 History Tamsulosin [Flomax] 0.4 mg PO BEDTIME 02/05/15 08/12/16 History metFORMIN [Glucophage] 500 mg PO BEDTIME 02/05/15 08/12/16 History Metoprolol Succinate 25 mg PO BID 12/12/15 08/12/16 History Aspirin EC Tab 81 mg PO QAM 01/10/16 08/12/16 History Theophylline ER Cap (24 Hr) 200 mg PO BEDTIME 01/19/16 08/12/16 History [Jaden-24] Polyethylene Glycol Powder 17 gm PO BID powder 01/25/16 08/12/16 Rx [Miralax] glyBURIDE [Glyburide] 5 mg PO DAILY 08/03/16 08/12/16 History Review of System - Review of System 12 point system: reviewed and no additional remarkable complaints except as stated - Review of System Constitutional: Present: diaphoresis (cold sweat). Absent: fever Respiratory: Present: cough, other (shortness of breath). Absent: respiratory distress Cardiovascular: Present: chest pain (left side) Gastrointestinal: Present: nausea. Absent: abdominal pain, vomiting Musculoskeletal: Present: back pain (straight through from chest). Absent: arm pain, neck pain Skin: Absent: rash Medical,Surgical,& Family Hx - Medical History Cardio: History of: Hypertension, Pacemaker (january 2015) HEENT: History of: Ear Problem (REPAIR OF RUPTURED EAR DRUM TO LEFT SIDE), Eye Problem (cataracts) Endocrine: History of: Diabetes Mellitus (NIDDM) (control with pill), Dyslipidemia Respiratory: History of: Obstructive Sleep Apnea Genitourinary: History of: Kidney Stones (about 27 years ago), Prostate Problems (enlarge prostate diagnosed 30 years ago) Gastrointestinal: History of: GI Problems (bowel rupture 3yrs ago) Musculoskeletal: History of: Back/Neck Problems (neck surgery) - Surgical History Thoracic Surgeries: Patient denies;: Organ Transplant, Lobectomy Neurologic Surgeries: Patient denies: Neurologic Surgery HEENT Surgeries: Surgical HX of: Thyroid Surgery, Tonsilectomy & Adenoidectomy Comment Only: Eye Surgery (catarack surgery) Abdominal Surgeries: Surgical HX of: Abdominal Surgery (repair of: Perforation with colostomy and subsequent reversal), Appendectomy, Cholecystectomy Reproductive Surgeries: Patient denies;: Prostate Surgery (enlarger prostate) Orthopedic Surgeries: Surgical HX of;: Orthopedic Surgery (left knee repair) - Family History Family History: Reports;: Family Cancer (father), Family Diabetes (mother), Family Heart Disease (mother), Family Hypertension (mother), Family Stroke ( father, mother) Denies;: Family Anesthesia Reaction, Family Psychiatric Problems - Social History Smoking Status: Never smoker Frequency of Alcohol Use: None Type of Drug Use: None Exam Vital Signs: Vital Signs Temperature 97.1 F L 08/12/16 17:32 Pulse Rate 66 08/12/16 17:32 Respiratory Rate 20 08/12/16 17:32 Blood Pressure 112/68 08/12/16 17:32 O2 Sat by Pulse Oximetry 98 08/12/16 16:19 - General General appearance: alert, in no apparent distress - Head Head exam: Present: atraumatic, normocephalic - Eye Eye exam: Present: normal appearance, PERRL, EOMI - ENT ENT exam: Present: normal exam - Neck Neck exam: Present: normal inspection - Chest Chest inspection: Present: normal inspection, symmetric chest wall rise - Respiratory Respiratory exam: Present: normal lung sounds bilaterally - Cardiovascular Cardiovascular exam: Present: regular rate, normal rhythm, normal heart sounds - Abdominal Exam Abdominal exam: Present: soft. Absent: distention, tenderness - Extremities Exam Extremities exam: Present: normal inspection - Back Exam Back exam: Present: normal inspection - Neurological Exam Neurological exam: Present: alert, oriented X3 - Psychiatric Psychiatric exam: Present: normal affect, normal mood - Skin Skin exam: Present: warm, dry, intact, normal color Course Course Narrative: Patient's pain was relieved with nitroglycerin sublingual. Patient will be admitted to Dr. Reid who is on-call for cardiology. Results - Labs CBC & BMP: 08/12/16 16:49 Lab Results: I have reviewed the patients labs - EKG EKG results: interpreted by ERMD, WNL, sinus rhythm - Diagnostic Findings Procedure: Chest x-ray: report reviewed by me (Nothing acute) Disposition Clinical Impression: Chest pain, Rule out unstable angina Case discussed with: patient, patient's family Disposition: Still a Patient Condition: Guarded Additional Instructions: Admit to Dr. Reid
[2016-08-12] MEDS ORDERED: MAGNESIUM SULF RIDER 4 GM in PREMIX 1 EACH IV PRN (17:40)
[2016-08-12] MEDS ORDERED: MAGNESIUM SULF RIDER 2 GM in PREMIX 1 EACH IV PRN (17:40)
[2016-08-12 17:45] LABS: Alanine Aminotransferase 15 U/L (16-61); Albumin 3.5 G/DL (3.4-5.0); Alkaline Phosphatase 57 U/L (45-117); Aspartate Amino Transferase 18 U/L (0-37); Bilirubin,Total < 0.39 MG/DL (0.2-1.0); Blood Urea Nitrogen 15 MG/DL (7-18); Calcium 8.8 MG/DL (8.5-10.1); Glucose 141 MG/DL (74-106); Magnesium 2.3 MG/DL (1.8-2.4); Osmolality,Calculated 281.4 MOS/KG (273-304); Potassium 3.9 MMOL/L (3.5-5.1); Sodium 140 MMOL/L (136-145); Total Protein 6.6 G/DL (6.4-8.3)
--- NOTE | 2016-08-12 19:28 | Cardiology History & Physical ---
Assessment and Plan (1) Chest pain Status: Resolved Assessment and plan: 66-year-old male, presenting with chest pain, not typical for cardiac origin. Prior history of sick sinus syndrome, dual-chamber pacemaker implantation, recurrent presyncope/syncope, recurrent pain issues, hypertension, hyperlipidemia, diabetes mellitus. Obstructive sleep apnea. The pain resolved promptly with nitroglycerin. I suspect esophageal spasm or similar etiology. -GI consult. N.p.o. after midnight. Start PPI. Maalox, NTG prn -Although cardiac etiology seems to be unlikely, this may need to be pursued, if GI workup does not establish the etiology of chest pain. We may need to consider cardiac catheterization, to evaluate nonspecific findings on the stress test. At this time, PE or aortic pathology unlikely. -He also has significant vasovagal component, complicating his response to the pain. The pacemaker improved his symptoms for several months initially, then his pain issues worsened and he had presyncopal spells again. They are now quite disabling. We were planning a tilt table test. -He also had orthostatic dizziness, without significant blood pressure response. Neurological evaluation was also planned. Current Visit: No (2) Hypertension Status: Chronic Current Visit: No (3) Syncope, near Status: Acute Current Visit: No (4) Diabetes mellitus Status: Chronic Current Visit: No (5) JESSICA (obstructive sleep apnea) Status: Chronic Current Visit: No (6) Status post placement of cardiac pacemaker Status: Chronic Current Visit: No (7) Atypical chest pain Status: Acute Current Visit: No (8) Diverticulosis Status: Acute Current Visit: No (9) Gastroesophageal reflux disease Status: Acute Current Visit: No (10) Hiatal hernia Status: Acute Current Visit: No History of Present Illness Chief complaint: CP History of present illness: Mr. Davis is a 66 year old male with history of highly symptomatic sinus bradycardia, which resolved with dual-chamber pacemaker implant. History of diverticulitis, status post colon resection, recurrent abdominal pain from scar , status post surgical revision, which improved his issues transiently, hypertension, hyperlipidemia, diabetes. He was having recurrent chest pains, which was also associated with dizziness, presyncopal. This was not associated with exercise. He underwent cardiac catheterization and multiple stress tests in the past, most recently, he was hospitalized with chest pain, stress test was unremarkable. Review of nuclear scan shows an anterior/apical defect, which improves poststress, Ejection fraction was 64%. EKG shows no prior Q-wave , ejection fraction 64%, EKG shows no prior anterior AK. Today, he was sitting, when he developed sudden onset midsternal chest pain, which was squeezing and extremely severe. He almost passed out again. He came to the emergency room for evaluation, got nitroglycerin, which promptly resolved the pain. He is feeling better. EKG and cardiac enzymes unremarkable. Home Medications Medication Instructions Recorded Confirmed Type Atorvastatin [Lipitor] 10 mg PO QAM 02/05/15 08/12/16 History Fenofibrate [Tricor] 145 mg PO BEDTIME 02/05/15 08/12/16 History Losartan [Cozaar] 50 mg PO QAM 02/05/15 08/12/16 History Tamsulosin [Flomax] 0.4 mg PO BEDTIME 02/05/15 08/12/16 History metFORMIN [Glucophage] 500 mg PO BEDTIME 02/05/15 08/12/16 History Metoprolol Succinate 25 mg PO BID 12/12/15 08/12/16 History Aspirin EC Tab 81 mg PO QAM 01/10/16 08/12/16 History Theophylline ER Cap (24 Hr) 200 mg PO BEDTIME 01/19/16 08/12/16 History [Jaden-24] Polyethylene Glycol Powder 17 gm PO BID powder 01/25/16 08/12/16 Rx [Miralax] glyBURIDE [Glyburide] 5 mg PO DAILY 08/03/16 08/12/16 History Allergies Allergy/AdvReac Type Severity Reaction Status Date / Time No Known Allergies Allergy Unverified 08/03/16 15:59 12 point system: reviewed and no additional remarkable complaints except as stated Medical,Surgical,& Family Hx - Medical History Cardio: History of: Hypertension, Pacemaker (january 2015) HEENT: History of: Ear Problem (REPAIR OF RUPTURED EAR DRUM TO LEFT SIDE), Eye Problem (cataracts) Endocrine: History of: Diabetes Mellitus (NIDDM) (control with pill), Dyslipidemia Respiratory: History of: Obstructive Sleep Apnea Genitourinary: History of: Kidney Stones (about 27 years ago), Prostate Problems (enlarge prostate diagnosed 30 years ago) Gastrointestinal: History of: GI Problems (bowel rupture 3yrs ago) Musculoskeletal: History of: Back/Neck Problems (neck surgery) - Surgical History Thoracic Surgeries: Patient denies;: Organ Transplant, Lobectomy Neurologic Surgeries: Patient denies: Neurologic Surgery HEENT Surgeries: Surgical HX of: Thyroid Surgery, Tonsilectomy & Adenoidectomy Comment Only: Eye Surgery (catarack surgery) Abdominal Surgeries: Surgical HX of: Abdominal Surgery (repair of: Perforation with colostomy and subsequent reversal), Appendectomy, Cholecystectomy Reproductive Surgeries: Patient denies;: Prostate Surgery (enlarger prostate) Orthopedic Surgeries: Surgical HX of;: Orthopedic Surgery (left knee repair) - Family History Family History: Reports;: Family Cancer (father), Family Diabetes (mother), Family Heart Disease (mother), Family Hypertension (mother), Family Stroke ( father, mother) Denies;: Family Anesthesia Reaction, Family Psychiatric Problems - Social History Smoking Status: Never smoker Frequency of Alcohol Use: None Type of Drug Use: None Cardiology Physical Exam - Constitutional Vitals: Vital Signs Temp Pulse Resp BP Pulse Ox 98.3 F 63 18 124/77 98 08/12/16 18:41 08/12/16 18:41 08/12/16 18:41 08/12/16 18:41 08/12/16 18:41 Intake and Output 08/12/16 08/12/16 08/12/16 07:59 15:59 23:59 Other: Weight 109.769 kg Patient Weight 08/12/16 23:59 Weight 109.769 kg General appearance: normal weight, mild distress - Head Head exam: Present: normal inspection, normocephalic - Eye Eye exam: Absent: conjunctival injection Pupils: Absent: dilated - ENT ENT exam: Present: normal exam - Neck Neck exam: Present: normal inspection - Respiratory Respiratory exam: Present: clear to auscultation bilaterally - Cardiovascular Cardiovascular exam: Present: regular rate and rhythm. Absent: systolic murmur - GI/Abdominal GI/Abdominal exam: Present: normal bowel sounds - Extremities Exam Extremities exam: Present: normal inspection, normal capillary refill. Absent: edema - Neurological Exam Neurological exam: Present: alert, oriented X3 - Psychiatric Psychiatric exam: Present: normal affect, anxious - Skin Skin exam: Present: normal color, warm. Absent: cyanosis Result/EKG - Labs CBC & BMP: 08/12/16 16:49 08/12/16 16:49 Lab Results: I have reviewed the past 24 hour labs
[2016-08-12] MEDS ORDERED: ALUMINUM/MAGNES/SIMETH MAX STR 30 ML UDCUP PO PRN (19:48)
[2016-08-12] MEDS ORDERED: NITROGLYCERIN SL 0.4 MG TABLET SL PRN (19:48)
[2016-08-12] MEDS: TAMSULOSIN 0.4 MG CAPSULE PO SCH (21:08)
[2016-08-12] MEDS: metFORMIN 500 MG TABLET PO SCH (21:08)
[2016-08-12] MEDS: THEOPHYLLINE ER (24 HR) 200 MG CAPSULE PO SCH (21:08)
[2016-08-12] MEDS: METOPROLOL SUCCINATE XL 25 MG TABLET PO SCH (21:08)
[2016-08-12] MEDS: POLYETHYLENE GLYCOL POWDER 17 GM PACK PO SCH (21:09)
[2016-08-12] MEDS: FENOFIBRATE 145 MG TABLET PO SCH (21:09)
[2016-08-12] MEDS: PANTOPRAZOLE 40 MG TABLET PO SCH (21:09)
[2016-08-13] MEDS: glyBURIDE 5 MG TABLET PO SCH (13:16)
[2016-08-13] MEDS: ATORVASTATIN 10 MG TABLET PO SCH (13:16)
[2016-08-13] MEDS: METOPROLOL SUCCINATE XL 25 MG TABLET PO SCH ×2 (13:16→21:36)
[2016-08-13] MEDS: ASPIRIN EC 81 MG TABLET PO SCH (13:16)
[2016-08-13] MEDS: LOSARTAN 50 MG TABLET PO SCH (13:16)
[2016-08-13] MEDS: PANTOPRAZOLE 40 MG TABLET PO SCH ×2 (13:16→21:37)
[2016-08-13] MEDS: POLYETHYLENE GLYCOL POWDER 17 GM PACK PO SCH ×2 (13:17→21:37)
--- NOTE | 2016-08-13 14:53 | Gastrointestinal Consult Note ---
Assessment and Plan (1) Atypical chest pain Status: Acute Assessment and plan: While this patient does have atypical chest pain, this is not always associated with his syncopal and near syncopal events. He certainly might have esophageal spasm present and/or nutcracker esophagus. Although we now have manometry available to us here at [facility], we are waiting inservice on the use of a new machine-- however this is not available just yet. Will order a barium swallow in order to look for the classic corkscrew configuration of the esophagus and/ or evidence of tertiary contractions and reflux as a surrogate for esophageal spasm. We know that this patient does not have severe esophagitis on the basis of prior endoscopy, and he does remain on pantoprazole at this time. No indication to repeat manometry. I remain dubious that esophageal spasm would produce sweating and syncope in either event. We may be dealing with a situation of autonomic instability such as positional orthostatic tachycardia syndrome or dysautonomia which should be discernible on tilt table testing. This is outside of my area of expertise however. Will defer to Dr. Reid. Current Visit: No (2) Gastritis and duodenitis Status: Acute Assessment and plan: The patient is not having any symptoms of heartburn or indigestion. He had been diagnosed previously with Helicobacter pylori negative gastritis and duodenitis. These appear to be stable. Current Visit: Yes (3) History of diverticulitis Status: Acute Assessment and plan: The patient has had previous diverticulitis with abscess formation and need for surgery. He has had no further episodes of this. Colonoscopy on 01/11/16 demonstrated a small amount of ischemia noted at the junction of previous colon resection in the left lower quadrant, no other polyps or other lesions were noted there were large internal hemorrhoids noted. Current Visit: Yes History of Present Illness Chief complaint: Atypical chest pain with dizziness and syncope in a patient with a pacer History of present illness: Mr. Davis is a 66 year old male who has a history of being seen by me last in the hospital on 01/10/16--please see my last consultation for the extensive GI workup done on this patient in the past. The highlights of this involved a previous sigmoid diverticulitis episode requiring colostomy and subsequent repair by Dr. Solis in 04/22/12 with repair occurring on 07/24/12. Patient had previously been evaluated for Dr. Reid for his reflux symptoms and a typical chest pain with upper endoscopy last done on 12/13/15. The patient had at that time substernal tenderness that was running between 2 and 10 out of 10 in intensity and he had a 2 cm hiatal hernia mild gastritis and bulbar duodenitis. The patient been given Levsin for the atypical chest pain as well as Protonix to suppress his acidity. He eventually was diagnosed as having symptomatic bradycardia and this improved using a dual chamber pacemaker implant. Despite the pacer placement. Patient states that over the last 3 months he has not felt right with frequent dizziness when up and walking around and 2 weeks ago developed a atypical chest pain with squeezing in his chest that was rated as 9 out of 10 intensity sweats and near syncope. He presented to emergency room and [place], [place] where EKG, blood work, and chest x-ray were all within normal limits. The patient continued to feel mildly dizzy through the remaining week and then last week he presented with an episode after walking out in the yard where he completely passed out without previous warning and did not have any symptoms of seizure activity or tongue biting, urination/ defecation on self etc. Sometimes these episodes have been preceded by the atypical chest pain and squeezing sensation up to 10 out of 10 in intensity, but not always. He is due for tilt table testing. Dr. Reid is concerned that there may be some esophageal spasm driving his current complaints. By report the pacer has been interrogated and has not demonstrated significant abnormalities when these episodes have occurred. Home Medications Medication Instructions Recorded Confirmed Type Atorvastatin [Lipitor] 10 mg PO QAM 02/05/15 08/12/16 History Fenofibrate [Tricor] 145 mg PO BEDTIME 02/05/15 08/12/16 History Losartan [Cozaar] 50 mg PO QAM 02/05/15 08/12/16 History Tamsulosin [Flomax] 0.4 mg PO BEDTIME 02/05/15 08/12/16 History metFORMIN [Glucophage] 500 mg PO BEDTIME 02/05/15 08/12/16 History Metoprolol Succinate 25 mg PO BID 12/12/15 08/12/16 History Aspirin EC Tab 81 mg PO QAM 01/10/16 08/12/16 History Theophylline ER Cap (24 Hr) 200 mg PO BEDTIME 01/19/16 08/12/16 History [Jaden-24] Polyethylene Glycol Powder 17 gm PO BID powder 01/25/16 08/12/16 Rx [Miralax] glyBURIDE [Glyburide] 5 mg PO DAILY 08/03/16 08/12/16 History Amlodipine Besylate 5 mg PO DAILY 08/13/16 08/13/16 History Citalopram [CeleXA] 20 mg PO DAILY 08/13/16 08/13/16 History Allergies Allergy/AdvReac Type Severity Reaction Status Date / Time No Known Allergies Allergy Unverified 08/03/16 15:59 Medical,Surgical,& Family Hx - Medical History Cardio: History of: Hypertension, Pacemaker (january 2015) HEENT: History of: Ear Problem (REPAIR OF RUPTURED EAR DRUM TO LEFT SIDE), Eye Problem (cataracts) Endocrine: History of: Diabetes Mellitus (NIDDM) (control with pill), Dyslipidemia Respiratory: History of: Obstructive Sleep Apnea Genitourinary: History of: Kidney Stones (about 27 years ago), Prostate Problems (enlarge prostate diagnosed 30 years ago) Gastrointestinal: History of: GI Problems (bowel rupture 3yrs ago) Musculoskeletal: History of: Back/Neck Problems (neck surgery) - Surgical History Thoracic Surgeries: Patient denies;: Organ Transplant, Lobectomy Neurologic Surgeries: Patient denies: Neurologic Surgery HEENT Surgeries: Surgical HX of: Thyroid Surgery, Tonsilectomy & Adenoidectomy Comment Only: Eye Surgery (catarack surgery) Abdominal Surgeries: Surgical HX of: Abdominal Surgery (repair of: Perforation with colostomy and subsequent reversal), Appendectomy, Cholecystectomy Reproductive Surgeries: Patient denies;: Prostate Surgery (enlarger prostate) Orthopedic Surgeries: Surgical HX of;: Orthopedic Surgery (left knee repair) - Family History Family History: Reports;: Family Cancer (father), Family Diabetes (mother), Family Heart Disease (mother), Family Hypertension (mother), Family Stroke ( father, mother) Denies;: Family Anesthesia Reaction, Family Psychiatric Problems - Social History Smoking Status: Never smoker Frequency of Alcohol Use: None Type of Drug Use: None Review of systems: Constitutional: Denies fever, chills, or vomiting, mild nausea Eyes: Denies dry eyes, and scleral icterus HENT: Denies headaches Cardiovascular: The patient does have episodes of recent acute chest pain but no claudication Respiratory: Denies shortness of breath, wheezing, and difficulty breathing, denies cough Gastrointestinal: As noted in the HPI Genitourinary: Denies dysuria and hematuria Neurologic: Denies vision loss, and loss of sensation Musculoskeletal: He does have some minimal joint swelling, joint stiffness, and muscular weakness Psychiatric: Denies depression and rich symptoms Heme-Lymph: Denies easy bruising, lymph node enlargement or tenderness, night sweats, excessive bleeding Allergies-immunologic: Denies pruritus and rhinorrhea Exam - Constitutional Vitals: Period Temp Pulse Resp BP Sys/Oseguera Pulse Ox Last 24 Hr 96.3 F-98.3 F 61-69 16-20 103-128/59-79 95-98 General appearance: no acute distress, over weight Exam: Constitutional: Well-developed, well-nourished, alert, and in no acute distress Head and face: Head: Normocephalic atraumatic Eyes: Conjunctiva without injection, no gross scleral icterus, pupils equal and round bilaterally Ears: Intact to conversation in both ears Nose: External appearance is normal, nares patent Mouth: Oral mucous membranes moist without erythema dentition noted to be without erosion Neck: Normal appearance, no masses or tenderness, trachea midline Thyroid: Gland midline and appropriate size for age Respiratory: Normal respiratory effort, clear to auscultation without wheezes, rhonchi or rales Cardiovascular: Regular rate and rhythm, normal S1, S2, the exam is without rubs, murmurs or gallops. Gastrointestinal: Nontender to palpation, normal active bowel sounds, tone normal without rigidity or guarding, no masses present, no hepatomegaly, no spleen tip felt. No rectal exam obtained. Lymphatic: Neck without adenopathy, axilla without lymphadenopathy present Musculoskeletal: Right and left lower extremities with trace evidence of edema Skin and subcutaneous tissue: No rashes or ulcerations noted, normal skin turgor, digits and nails without clubbing/cyanosis/deformities. Neurologic: The patient is grossly oriented to person place and time, cranial nerves show tongue movements are normal with normal tongue extrusion midline, light touch sensation is intact. Psychiatric: No hallucinations or delusions are present, does not appear depressed Results - Labs CBC & BMP: 08/12/16 16:49 08/12/16 16:49
[2016-08-13] MEDS: metFORMIN 500 MG TABLET PO SCH (21:36)
[2016-08-13] MEDS: THEOPHYLLINE ER (24 HR) 200 MG CAPSULE PO SCH (21:36)
[2016-08-13] MEDS: FENOFIBRATE 145 MG TABLET PO SCH (21:36)
[2016-08-13] MEDS: TAMSULOSIN 0.4 MG CAPSULE PO SCH (21:37)
--- NOTE | 2016-08-13 22:23 | Cardiology Progress Note ---
Assessment and Plan (1) Chest pain Status: Resolved Assessment and plan: 66-year-old male, presenting with chest pain, not typical for cardiac origin. Prior history of sick sinus syndrome, dual-chamber pacemaker implantation, recurrent presyncope/syncope, recurrent pain issues, hypertension, hyperlipidemia, diabetes mellitus. Obstructive sleep apnea. The pain resolved promptly with nitroglycerin. I suspect esophageal spasm or similar etiology. -Appreciate GI input. Workup in progress -Although cardiac etiology seems to be unlikely, this may need to be pursued, if GI workup does not establish the etiology of chest pain. We may need to consider cardiac catheterization, to evaluate nonspecific findings on the stress test. At this time, PE or aortic pathology unlikely. -He also has significant vasovagal component, complicating his response to the pain. The pacemaker improved his symptoms for several months initially, then his pain issues worsened and he had presyncopal spells again. They are now quite disabling. We are planning a tilt table test. -He also had orthostatic dizziness, without significant blood pressure response. Neurological evaluation was also planned. Current Visit: No (2) Hypertension Status: Chronic Current Visit: No (3) Syncope, near Status: Acute Current Visit: No (4) Diabetes mellitus Status: Chronic Current Visit: No (5) JESSICA (obstructive sleep apnea) Status: Chronic Current Visit: No (6) Status post placement of cardiac pacemaker Status: Chronic Current Visit: No (7) Atypical chest pain Status: Acute Current Visit: No (8) Diverticulosis Status: Acute Current Visit: No (9) Gastroesophageal reflux disease Status: Acute Current Visit: No (10) Hiatal hernia Status: Acute Current Visit: No Cardiology - PN: Subj Interval history: He had mild persistent chest discomfort. EKG, telemetry, cardiac biomarkers remain negative. Appreciate GI input Exam (Progress Note) - Constitutional Vitals: Period Temp Pulse Resp BP Sys/Oseguera Pulse Ox Last 24 Hr 96.3 F-98.7 F 61-69 16-20 103-128/59-74 95-98 General appearance: normal weight, over weight - Head Head exam: Present: normal inspection, normocephalic - Eye Eye exam: Absent: conjunctival injection Pupils: Absent: dilated - ENT ENT exam: Present: normal external ear exam - Neck Neck exam: Present: normal inspection - Respiratory Respiratory exam: Present: clear to auscultation bilaterally - Cardiovascular Cardiovascular exam: Present: regular rate and rhythm - GI/Abdominal GI/Abdominal exam: Present: normal bowel sounds. Absent: distended - Extremities Exam Extremities exam: Present: normal inspection, normal capillary refill. Absent: edema - Back Exam Back exam: Present: normal inspection - Neurological Exam Neurological exam: Present: alert, oriented X3 - Psychiatric Psychiatric exam: Present: normal affect, normal mood - Skin Skin exam: Present: normal color, warm. Absent: cyanosis Result/EKG - Labs CBC & BMP: 08/12/16 16:49 08/12/16 16:49 Lab Results: I have reviewed the past 24 hour labs Labs: Laboratory Results - last 24 hr 08/12/16 08/13/16 08/13/16 22:59 07:36 11:11 POC Glucose 88 96 Troponin I < 0.015 08/13/16 20:40 POC Glucose 86 Troponin I - EKG EKG results: interpreted by me
[2016-08-14] MEDS ORDERED: GLUCAGON 1 MG VIAL IM PRN (09:28)
[2016-08-14] MEDS ORDERED: DEXTROSE 50% 25 GM/50 ML VIAL IV PRN (09:28)
--- NOTE | 2016-08-14 11:32 | Fluoroscopy Report ---
Referring Physician: Timothy Yu Exam: FL barium swallow with upper GI series Date: August 14, 2016 Reason: Evaluate for nutcracker esophagus/esophageal spasm Comparison: CT chest August 22, 2015 Technique: The patient was orally administered barium contrast material and was observed using fluoroscopy. Images were acquired. Fluoroscopy time was 3 minutes 56 seconds. Findings: The patient swallowed contrast without difficulty. Contrast material flowed readily through the esophagus on the standing views. There is mild delayed movement of contrast through the esophagus on the prone views as well as mild tertiary contractions. There is a mildly prominent cricopharyngeal muscle impression upon the upper esophagus, but contrast material flowed readily through this region. A small hiatal hernia is present. There was minimal gastroesophageal reflux to the lower esophagus. The gastroesophageal junction and and gastric cardia/fundus were difficult to fully distend, and narrowing is difficult to exclude in this region. However, the patient states that he recently had a normal endoscopy, and these findings could be related to angulation of the stomach at this region. Of note, the stomach has a prominent angle in this region on the previous CT. The stomach is otherwise unremarkable, demonstrating normal contour and fold pattern. The duodenum demonstrates normal caliber and fold pattern. There are surgical clips within the upper abdomen bilaterally and cardiac pacing leads are present. Impression: 1. There is mild esophageal dysmotility with mild delayed movement of contrast through the esophagus on the prone images and mild tertiary contractions. 2. Small hiatal hernia. 3. It was difficult to fully distend the gastroesophageal junction and gastric cardia/fundus. Mild narrowing is difficult to exclude in this region, but the patient reports a recent normal endoscopy. This may be related to angulation/positioning of the stomach, especially since the stomach has a prominent angle in this region on the recent CT. The angulation may be related to scarring/adhesions in this region, especially given the surgical clips within the left upper abdomen. 4. Minimal gastroesophageal reflux to the lower esophagus. PROCEDURE INTERPRETED AT [facility] DEPARTMENT OF RADIOLOGY Final Report Signed by: Dr. Erin Corey
[2016-08-14] MEDS: glyBURIDE 5 MG TABLET PO SCH (13:09)
[2016-08-14] MEDS: PANTOPRAZOLE 40 MG TABLET PO SCH ×2 (13:09→22:07)
[2016-08-14] MEDS: ASPIRIN EC 81 MG TABLET PO SCH (13:09)
[2016-08-14] MEDS: LOSARTAN 50 MG TABLET PO SCH (13:10)
[2016-08-14] MEDS: METOPROLOL SUCCINATE XL 25 MG TABLET PO SCH ×2 (13:10→22:11)
[2016-08-14] MEDS: ATORVASTATIN 10 MG TABLET PO SCH (13:11)
[2016-08-14] MEDS: POLYETHYLENE GLYCOL POWDER 17 GM PACK PO SCH ×2 (13:11→22:07)
[2016-08-14] MEDS: INSULIN LISPRO 100 UNIT/ML SUBCUT SCH ×3 (13:13→22:07)
--- NOTE | 2016-08-14 13:19 | Cardiology Progress Note ---
Assessment and Plan (1) Chest pain Status: Resolved Assessment and plan: 66-year-old male, presenting with chest pain, not typical for cardiac origin. Prior history of sick sinus syndrome, dual-chamber pacemaker implantation, recurrent presyncope/syncope, recurrent pain issues, hypertension, hyperlipidemia, diabetes mellitus. Obstructive sleep apnea. The pain resolved promptly with nitroglycerin. I suspect esophageal spasm or similar etiology. -Appreciate GI input. Workup in progress -He does not have major cardiac or GI findings, that would explain his chronic, recurrent chest pain, dizziness. In the past, he had exaggerated response to painful stimuli, he was highly symptomatic even from mild sinus bradycardia, before the pacer implant and also had severe pain issues, due to some surgical scar which improved after he was revised. -I am going to start Cardizem and Imdur for suspected spasm. -Primary cardiac etiology is unlikely. We may do a tilt table test, to assess vasovagal component. Previously he checked negative for orthostatics, despite prominent dizziness while standing. -If etiology remains unclear, we may pursue neurological, ENT and pain evaluation. Current Visit: No (2) Hypertension Status: Chronic Current Visit: No (3) Syncope, near Status: Acute Current Visit: No (4) Diabetes mellitus Status: Chronic Current Visit: No (5) JESSICA (obstructive sleep apnea) Status: Chronic Current Visit: No (6) Status post placement of cardiac pacemaker Status: Chronic Current Visit: No (7) Atypical chest pain Status: Acute Current Visit: No (8) Diverticulosis Status: Acute Current Visit: No (9) Gastroesophageal reflux disease Status: Acute Current Visit: No (10) Hiatal hernia Status: Acute Current Visit: No Cardiology - PN: Subj Interval history: Barium swallow showed mild esophageal findings. He is still having persistent chest discomfort. Normal pacemaker function, normal blood pressure. He still getting dizzy, lightheaded with postural changes. Exam (Progress Note) - Constitutional Vitals: Period Temp Pulse Resp BP Sys/Oseguera Pulse Ox Last 24 Hr 96.8 F-98.7 F 56-82 16-20 111-125/65-75 91-98 General appearance: normal weight, no acute distress - Head Head exam: Present: normal inspection, normocephalic - Eye Eye exam: Absent: conjunctival injection Pupils: Absent: dilated - ENT ENT exam: Present: normal external ear exam - Neck Neck exam: Present: normal inspection - Respiratory Respiratory exam: Present: clear to auscultation bilaterally - Cardiovascular Cardiovascular exam: Present: regular rate and rhythm - GI/Abdominal GI/Abdominal exam: Present: normal bowel sounds - Extremities Exam Extremities exam: Present: normal inspection, normal capillary refill. Absent: edema - Back Exam Back exam: Present: normal inspection - Neurological Exam Neurological exam: Present: alert, oriented X3 - Psychiatric Psychiatric exam: Present: normal affect, normal mood - Skin Skin exam: Present: normal color, warm. Absent: cyanosis Result/EKG - Labs CBC & BMP: 08/12/16 16:49 08/12/16 16:49 Lab Results: I have reviewed the past 24 hour labs Labs: Laboratory Results - last 24 hr 08/13/16 08/14/16 08/14/16 20:40 07:57 10:45 POC Glucose 86 63 L 85 08/14/16 11:54 POC Glucose 74 - EKG EKG results: interpreted by me
[2016-08-14] MEDS ORDERED: ISOSORBIDE MONONITRATE 30 MG TABLET PO SCH (13:30)
[2016-08-14] MEDS ORDERED: DILTIAZEM CD 120 MG CAPSULE PO SCH (13:30)
[2016-08-14] MEDS: ONDANSETRON 4 MG/2 ML VIAL IV PRN (18:20)
[2016-08-14] MEDS: ACETAMINOPHEN 325 MG TABLET PO PRN (18:44)
--- NOTE | 2016-08-14 19:25 | Gastrointestinal Progress Note ---
Assessment and Plan (1) Atypical chest pain Status: Acute Assessment and plan: While this patient does have atypical chest pain, this is not always associated with his syncopal and near syncopal events. He certainly might have esophageal spasm present and/or nutcracker esophagus. Although we now have manometry available to us here at [facility], we are waiting inservice on the use of a new machine-- however this is not available just yet. Will order a barium swallow in order to look for the classic corkscrew configuration of the esophagus and/ or evidence of tertiary contractions and reflux as a surrogate for esophageal spasm. We know that this patient does not have severe esophagitis on the basis of prior endoscopy, and he does remain on pantoprazole at this time. No indication to repeat manometry. I remain dubious that esophageal spasm would produce sweating and syncope in either event. We may be dealing with a situation of autonomic instability such as positional orthostatic tachycardia syndrome or dysautonomia which should be discernible on tilt table testing. This is outside of my area of expertise however. Will defer to Dr. Reid. 08/14/16--barium swallow as mentioned below does not show severe esophageal spasm just some tertiary contractions in the prone position. He does have some low-grade reflux but is also seen mirroring the findings at his last upper endoscopy. We have kept him on Protonix twice daily during his hospital stay and my suggestion would be to see if this makes a difference over the next 1 month at this level of acid suppression. The patient is getting Cardizem and Imdur both of which are going to act as smooth muscle relaxing agents that could potentially help with esophageal spasm. If he does well over the evening time the patient is due to be released tomorrow. I have written a prescription for the Protonix and placed in the front of the chart for potential discharge. I suspect he may be back again in the future. Current Visit: No (2) Gastritis and duodenitis Status: Acute Assessment and plan: The patient is not having any symptoms of heartburn or indigestion. He had been diagnosed previously with Helicobacter pylori negative gastritis and duodenitis. These appear to be stable. 08/14/16--As noted above. Current Visit: Yes (3) History of diverticulitis Status: Acute Assessment and plan: The patient has had previous diverticulitis with abscess formation and need for surgery. He has had no further episodes of this. Colonoscopy on 01/11/16 demonstrated a small amount of ischemia noted at the junction of previous colon resection in the left lower quadrant, no other polyps or other lesions were noted there were large internal hemorrhoids noted. 08/14/16--No plans to repeat colonoscopy until 2025. Current Visit: Yes Gastroenterology - PN: Subj Interval history: Tyson had another episode of nausea and vomiting which lowered his blood pressure into the 90s over 60s and resultant another episode of dizziness consistent with an exaggerated vagal response as his theorized is being source of the patient's episodes. The barium swallow done today show some tertiary contractions while in the prone position but does not demonstrate true esophageal spasm/nutcracker esophagus. Patient previously been scoped as noted in my original consultation. He does have underlying reflux issues as well as some gastritis and some reflux was demonstrated on the barium swallow as well. Exam (Progress Note) - Constitutional Vitals: Period Temp Pulse Resp BP Sys/Oseguera Pulse Ox Last 24 Hr 96.8 F-98.2 F 56-82 16-20 99-133/59-75 91-98 General appearance: no acute distress - Head Head exam: Present: normocephalic - Eye Eye exam: Present: EOMI - Respiratory Respiratory exam: Present: clear to auscultation bilaterally - Cardiovascular Cardiovascular exam: Present: regular rate and rhythm - GI/Abdominal GI/Abdominal exam: Present: normal bowel sounds, soft. Absent: ascites, distended, firm, guarding, tenderness, rebound - Extremities Exam Extremities exam: Present: full ROM. Absent: edema - Back Exam Back exam: Present: normal inspection - Psychiatric Psychiatric exam: Present: normal affect, normal mood - Skin Skin exam: Present: warm Results - Labs CBC & BMP: 08/12/16 16:49 08/12/16 16:49
[2016-08-14] MEDS: TAMSULOSIN 0.4 MG CAPSULE PO SCH (22:06)
[2016-08-14] MEDS: FENOFIBRATE 145 MG TABLET PO SCH (22:06)
[2016-08-14] MEDS: THEOPHYLLINE ER (24 HR) 200 MG CAPSULE PO SCH (22:06)
[2016-08-14] MEDS: IBUPROFEN 400 MG TABLET PO PRN (22:06)
[2016-08-14] MEDS: metFORMIN 500 MG TABLET PO SCH (22:06)
[2016-08-15] MEDS: ACETAMINOPHEN 325 MG TABLET PO PRN (05:48)
[2016-08-15] MEDS: IBUPROFEN 400 MG TABLET PO PRN (05:48)
[2016-08-15] MEDS: ONDANSETRON 4 MG/2 ML VIAL IV PRN (08:58)
[2016-08-15] MEDS ORDERED: ISOPROTERENOL 1 MG/5 ML VIAL IV ONE (09:56)
[2016-08-15] MEDS: INSULIN LISPRO 100 UNIT/ML SUBCUT SCH ×4 (10:37→22:00)
--- NOTE | 2016-08-15 12:18 | Cardiology Progress Note ---
Assessment and Plan (1) Chest pain Status: Resolved Assessment and plan: 66-year-old male, presenting with chest pain, not typical for cardiac origin. Prior history of sick sinus syndrome, dual-chamber pacemaker implantation, recurrent presyncope/syncope, recurrent pain issues, hypertension, hyperlipidemia, diabetes mellitus. Obstructive sleep apnea. The pain resolved promptly with nitroglycerin. I suspect esophageal spasm or similar etiology. -Appreciate GI input. Severe esophageal spasm unlikely. Stop Imdur and Cardizem. Headache, low blood pressure limits use of these medications. -We will proceed with tilt table test and a left heart catheterization today. N.p.o. he had an anterior defect on his recent stress test, which was suggestive of artifact. The presentation is not typical for ACS. He still has recurrent chest pain. -If cardiac workup unrevealing, we will obtain neurological and ENT evaluation. His intermittent dizziness is quite disabling at this time, but so far, no clear orthostatic evidence is identified. Current Visit: No (2) Hypertension Status: Chronic Current Visit: No (3) Syncope, near Status: Acute Current Visit: No (4) Diabetes mellitus Status: Chronic Current Visit: No (5) JESSICA (obstructive sleep apnea) Status: Chronic Current Visit: No (6) Status post placement of cardiac pacemaker Status: Chronic Current Visit: No (7) Atypical chest pain Status: Acute Current Visit: No (8) Diverticulosis Status: Acute Current Visit: No (9) Gastroesophageal reflux disease Status: Acute Current Visit: No (10) Hiatal hernia Status: Acute Current Visit: No Cardiology - PN: Subj Interval history: He developed severe headache, after the Imdur and Cardizem was started. His blood pressure is now borderline. He still feeling dizzy and his left-sided headache. Heart rhythm stable. Exam (Progress Note) - Constitutional Vitals: Period Temp Pulse Resp BP Sys/Oseguera Pulse Ox Last 24 Hr 96.9 F-98.6 F 59-82 16-20 83-133/52-68 91-98 General appearance: normal weight, over weight - Head Head exam: Present: normal inspection, normocephalic - Eye Eye exam: Absent: conjunctival injection Pupils: Absent: dilated - ENT ENT exam: Present: normal external ear exam - Neck Neck exam: Present: normal inspection - Respiratory Respiratory exam: Present: clear to auscultation bilaterally - Cardiovascular Cardiovascular exam: Present: regular rate and rhythm - GI/Abdominal GI/Abdominal exam: Present: normal bowel sounds - Extremities Exam Extremities exam: Present: normal inspection, normal capillary refill. Absent: edema - Back Exam Back exam: Present: normal inspection - Neurological Exam Neurological exam: Present: alert, oriented X3 - Psychiatric Psychiatric exam: Present: normal affect, normal mood - Skin Skin exam: Present: normal color, warm. Absent: cyanosis Result/EKG - Labs CBC & BMP: 08/12/16 16:49 08/12/16 16:49 Lab Results: I have reviewed the past 24 hour labs Labs: Laboratory Results - last 24 hr 08/14/16 08/14/16 08/14/16 10:45 11:54 15:44 POC Glucose 85 74 106 08/14/16 08/15/16 21:05 07:07 POC Glucose 117 H 89 - EKG EKG results: interpreted by me
--- NOTE | 2016-08-15 12:22 | Electrophysiology Report ---
Date of Procedure:: 08/15/16 Pre-op diagnosis: Syncope Post-op diagnosis: other Procedure: PROCEDURE SUMMARY Tilt table test. Positive for vasovagal syncope, even with PM. Mild orthostatic response. PLAN Will adjust PM settings. Proceed with LHC, r/o CAD as cause of recurrent CP, nonspecific findings on stress test. Will get neuro consult unless clear primary cardiology etiology is established. PROCEDURE Informed consent was obtained and a timeout was performed prior to the procedure. The patient was continuously monitored by ECG, pulse oxymetry and NIBP. Tilt table test The patient was brought to the EP lab and secured to the tilt table in a supine position. Baseline measurement of vital signs and assessment of symptoms was performed. The table was then raised to 70 degrees. The patient was monitored for 30 minutes. The table was lowered to 0 degrees. Stage and time Heart rate and rhythm Blood pressure, mmHg Symptoms Baseline, supine AP 60 113/68 None 1', 70 degrees tilt AP 60 104/66 None 5', 70 degrees tilt AP 65 109/69 None 10', 70 degrees tilt SR 68 98/63 None 15', 70 degrees tilt SR 76 98/57 Lightheaded, chest tightness, sweaty 20', 70 degrees tilt SR 68 92/57 very sweaty feeling 25', 70 degrees tilt SR 75. Intermittent AVB 76/30 Passed out BP normalized promptly with supine position, IVF bolus. He remained sweaty for several minutes. Anesthesia: other Surgeon / Physician: Vito Reid Derrick Car Operator: other (Rao) Estimated blood loss: none Specimens: none sent Condition: stable Disposition: floor
[2016-08-15] MEDS ORDERED: DIAZEPAM 5 MG TABLET PO ONE (14:00)
[2016-08-15] MEDS ORDERED: diphenhydrAMINE CAP 25 MG CAPSULE PO ONE (14:00)
[2016-08-15] MEDS ORDERED: ASPIRIN 325 MG TABLET PO ONE (14:00)
[2016-08-15] MEDS ORDERED: HEPARIN/NACL 0.9% 2 UNITS/ML 1,000 ML IV ONE (14:09)
[2016-08-15] MEDS ORDERED: LIDOCAINE 1% 20 ML VIAL ONE (14:09)
[2016-08-15] MEDS ORDERED: SODIUM BICARBONATE 2.4 MEQ/5 ML VIAL ONE (14:11)
[2016-08-15] MEDS ORDERED: fentaNYL 100 MCG/2 ML VIAL ONE (14:19)
[2016-08-15] MEDS ORDERED: MIDAZOLAM 2 MG/2 ML VIAL ONE ×2 (14:19→14:35)
--- NOTE | 2016-08-15 14:24 | History and Physical Update ---
Sedation H&P Update - History and Physical H&P was reviewed, the patient examined and there: are no changes in the patients condition since last H&P was completed. - Dictation Physical: refer to H&P completed by admitting physician - Physical Exam Mental Status: alert and oriented Heart: regular rate and rhythm Lung: clear to auscultation Abdomen: within normal limits Vitals: within normal limits - Sedation Plan for Sedation: moderate Patient Consent: Procedure disscussed with patient and patinet has consented., Risks and benefits were discussed with patient,including infection,, bleeding, injury to surrounding structures, seizure, temporary nerve, Patient understands and accepts potential risks/benefits and agrees to, proceed. ASA Class: III Airway Assessment: Class II: Soft palate, uvula, fauces visible
[2016-08-15] MEDS ORDERED: MORPHINE 2 MG/1 ML SYRINGE IV PRN (15:08)
[2016-08-15] MEDS ORDERED: ACETAMINOPHEN/CODEINE 300-30 MG TABLET PO PRN (15:08)
--- NOTE | 2016-08-15 15:29 | Cardiology Operative Report ---
Date of Procedure:: 08/15/16 Pre-op diagnosis: Syncope Post-op diagnosis: other Procedure: 1. Selective left and right coronary angiography. 2. Left heart catheterization with left ventriculogram. 3. Right iliac angiography to rule out vascular complications. Impression: 1. Mild coronary atherosclerosis. Mildly sluggish flow in the LAD without significant stenosis. 2. Right dominant coronary arteries. 3. Ejection fraction 55 %. 4. Angiographically normal right iliac artery without evidence of vascular complications. Plan: 1. Noncardiac workup if symptoms. Equipment: Diagnostic 6 Russian JL4, JR4, pigtail catheters. Hemodynamics: Aortic pressure 80/58 mmHg, left ventricular pressure 85/2 mmHg, LVEDP 4 mmHg Sedation: Versed 4 mg, fentanyl 100 mcg Procedure: After informed consent was obtained the patient was prepped and draped in sterile fashion. The right groin was infiltrated with 1% lidocaine and the right femoral artery was accessed via modified Seldinger technique using a micropuncture needle and a 6 Russian femoral arterial sheath was placed. All catheter exchanges were performed over a guidewire under fluoroscopic guidance. Diagnostic 6 Russian JL4 and JR4 catheters were advanced to the left and right coronary arteries respectively and multiple cineangiograms were performed in varying degrees of obliquity and angulation. Thereafter a pigtail catheter was advanced into the left ventricle where hemodynamics were obtained followed by left ventriculogram. At conclusion of the procedure right iliac angiography was performed to rule out vascular complications. Findings: 1. The left main artery is angiographically normal. 2. The left anterior descending artery extends to the apex and wraps around. There is mildly sluggish runoff but no significant stenosis, only mild luminal irregularities. 3. There is not an intermediate ramus branch. 4. The circumflex artery is a nondominant vessel. It gives rise to a high first marginal artery, then a smaller second and third marginal artery. It is free of significant disease. 5. The right coronary artery is a dominant vessel with mild luminal irregularities but no significant stenosis. 6. Ejection fraction is 55 % with normal anterior, inferior and apical wall motion. 7. No significant mitral regurgitation. 8. No significant aortic stenosis. 9. The right iliac artery is angiographically normal without evidence of vascular complications. Contrast use: 94 cc Fluoro time: 1.8 minutes Complications: none Specimens removed: none Devices implanted: none Anesthesia: moderate conscious sedation Surgeon / Physician: Cristela Baptiste Baggage Inspector: none (Reema Angelo) Estimated blood loss: none Specimens: none sent Condition: stable Disposition: floor
[2016-08-15] MEDS ORDERED: SODIUM CHLORIDE 0.45% 1,000 ML IV SCH (15:30)
--- NOTE | 2016-08-15 16:56 | Gastrointestinal Progress Note ---
Assessment and Plan (1) Atypical chest pain Status: Acute Assessment and plan: While this patient does have atypical chest pain, this is not always associated with his syncopal and near syncopal events. He certainly might have esophageal spasm present and/or nutcracker esophagus. Although we now have manometry available to us here at [facility], we are waiting inservice on the use of a new machine-- however this is not available just yet. Will order a barium swallow in order to look for the classic corkscrew configuration of the esophagus and/ or evidence of tertiary contractions and reflux as a surrogate for esophageal spasm. We know that this patient does not have severe esophagitis on the basis of prior endoscopy, and he does remain on pantoprazole at this time. No indication to repeat manometry. I remain dubious that esophageal spasm would produce sweating and syncope in either event. We may be dealing with a situation of autonomic instability such as positional orthostatic tachycardia syndrome or dysautonomia which should be discernible on tilt table testing. This is outside of my area of expertise however. Will defer to Dr. Reid. 08/14/16--barium swallow as mentioned below does not show severe esophageal spasm just some tertiary contractions in the prone position. He does have some low-grade reflux but is also seen mirroring the findings at his last upper endoscopy. We have kept him on Protonix twice daily during his hospital stay and my suggestion would be to see if this makes a difference over the next 1 month at this level of acid suppression. The patient is getting Cardizem and Imdur both of which are going to act as smooth muscle relaxing agents that could potentially help with esophageal spasm. If he does well over the evening time the patient is due to be released tomorrow. I have written a prescription for the Protonix and placed in the front of the chart for potential discharge. I suspect he may be back again in the future. 08/15/16--No further atypical chest pain since tilt table testing which apparently was positive for hypotension and syncope Current Visit: No (2) Gastritis and duodenitis Status: Acute Assessment and plan: The patient is not having any symptoms of heartburn or indigestion. He had been diagnosed previously with Helicobacter pylori negative gastritis and duodenitis. These appear to be stable. 08/14/16--As noted above. 08/15/16--Stable, no GI pain whatsoever. Current Visit: Yes (3) History of diverticulitis Status: Acute Assessment and plan: The patient has had previous diverticulitis with abscess formation and need for surgery. He has had no further episodes of this. Colonoscopy on 01/11/16 demonstrated a small amount of ischemia noted at the junction of previous colon resection in the left lower quadrant, no other polyps or other lesions were noted there were large internal hemorrhoids noted. 08/14/16--No plans to repeat colonoscopy until 2025. 08/15/16--as above Current Visit: Yes Gastroenterology - PN: Subj Interval history: Convalescing from the catheterization done today. No further chest pain at this time. Catheterization showed mildly sluggish flow in the LAD however 55% ejection fraction and right dominant system otherwise without significant stenosis. Exam (Progress Note) - Constitutional Vitals: Period Temp Pulse Resp BP Sys/Oseguera Pulse Ox Last 24 Hr 96.9 F-98.6 F 59-71 16-20 83-115/52-66 91-97 General appearance: no acute distress - Head Head exam: Present: normocephalic - Eye Eye exam: Present: EOMI - Respiratory Respiratory exam: Present: clear to auscultation bilaterally - Cardiovascular Cardiovascular exam: Present: regular rate and rhythm - GI/Abdominal GI/Abdominal exam: Present: normal bowel sounds, soft. Absent: distended, tenderness, rebound - Extremities Exam Extremities exam: Absent: edema - Neurological Exam Neurological exam: Present: alert, oriented X3 - Psychiatric Psychiatric exam: Present: normal affect, normal mood - Skin Skin exam: Present: warm Results - Labs CBC & BMP: 08/12/16 16:49 08/12/16 16:49
[2016-08-15] MEDS: POLYETHYLENE GLYCOL POWDER 17 GM PACK PO SCH ×2 (17:03→21:59)
[2016-08-15] MEDS: PANTOPRAZOLE 40 MG TABLET PO SCH ×2 (17:04→21:59)
[2016-08-15] MEDS: ASPIRIN EC 81 MG TABLET PO SCH (17:04)
[2016-08-15] MEDS: glyBURIDE 5 MG TABLET PO SCH (17:05)
[2016-08-15] MEDS: METOPROLOL SUCCINATE XL 25 MG TABLET PO SCH ×2 (17:05→22:00)
[2016-08-15] MEDS: LOSARTAN 50 MG TABLET PO SCH (17:05)
[2016-08-15] MEDS: ATORVASTATIN 10 MG TABLET PO SCH (17:05)
[2016-08-15] MEDS ORDERED: BISACODYL 5 MG TABLET PO ONE (21:00)
[2016-08-15] MEDS: metFORMIN 500 MG TABLET PO SCH (21:59)
[2016-08-15] MEDS: RANOLAZINE 500 MG TABLET PO SCH (21:59)
[2016-08-15] MEDS: TAMSULOSIN 0.4 MG CAPSULE PO SCH (21:59)
[2016-08-15] MEDS: THEOPHYLLINE ER (24 HR) 200 MG CAPSULE PO SCH (21:59)
[2016-08-15] MEDS: FENOFIBRATE 145 MG TABLET PO SCH (21:59)
[2016-08-16 06:25] LABS: Basophils % 0.7 % (0.0-0.8); Eosinophils # 0.1 10*3/uL (0.0-0.87); Hematocrit 40.1 VOL% (42.0-52.0); Hemoglobin 13.2 GM/DL (14.0-18.0); Immature Granulocytes % 0.2 %; Immature Granulocytes Absolute 0.01 #; Lymphocytes # 1.4 10*3/uL (1.4-4.0); Lymphocytes % 24.7 % (21.2-54.2); Mean Corpuscular HGB Conc 32.9 GM/DL (32-36); Mean Corpuscular Hemoglobin 28 PG (27-34); Mean Corpuscular Volume 85.5 FL (87-102); Monocytes # 0.5 10*3/uL (0.11-0.8); Monocytes % 9.2 % (1.7-12.7); Neutrophils # 3.5 10*3/uL (1.4-7.4); Neutrophils % 63.2 % (38.7-73.9); Platelet Count 180 T/CUMM (130-400); Red Blood Count 4.69 MC/CUMM (3.8-5.5); Red Cell Distribution Width 14.5 % (9.3-17.3); White Blood Count 5.6 T/CUMM (4-12)
[2016-08-16 06:53] LABS: Potassium 3.9 MMOL/L (3.5-5.1)
[2016-08-16] MEDS: INSULIN LISPRO 100 UNIT/ML SUBCUT SCH (08:12)
[2016-08-16 08:14] VITALS: BP 107/68
[2016-08-16] MEDS: RANOLAZINE 500 MG TABLET PO SCH (08:52)
[2016-08-16] MEDS: LOSARTAN 50 MG TABLET PO SCH (08:52)
[2016-08-16] MEDS: METOPROLOL SUCCINATE XL 25 MG TABLET PO SCH (08:52)
[2016-08-16] MEDS: ASPIRIN EC 81 MG TABLET PO SCH (08:52)
[2016-08-16] MEDS: PANTOPRAZOLE 40 MG TABLET PO SCH (08:52)
[2016-08-16] MEDS: ATORVASTATIN 10 MG TABLET PO SCH (08:52)
[2016-08-16] MEDS: glyBURIDE 5 MG TABLET PO SCH (08:52)
[2016-08-16] MEDS: POLYETHYLENE GLYCOL POWDER 17 GM PACK PO SCH (08:53)
--- NOTE | 2016-08-16 10:40 | Discharge Summary ---
Hospital Course - Hospital Course Hospital Course: Mr. Davis is a 67-year-old male, with history of dual-chamber pacemaker implantation, due to sick sinus syndrome, symptomatic bradycardia. Type 2 diabetes mellitus, hypertension, hyperlipidemia, obesity. He was admitted for recurrent episodes of syncope, dizziness. In the past, he had episodes suspicious for vasovagal origin. This was usually preceded by pain issues, he underwent prior surgical scar revision several months ago, which caused similar symptoms, the pain improved after the surgery, but then he had recurrent pains, chest pains at this time. He was admitted for evaluation. The pain was not typical for angina, he underwent GI evaluation by dr. Yu, barium swallow suggested mild esophageal dysmotility. We attempted Cardizem and Imdur for esophageal spasm, which was limited by headache and worsened dizziness. This had to be stopped. He also underwent cardiac catheterization by dr. Baptiste, as his prior stress test showed an anterior defect, which was suggestive of an artifact back then. He has a sluggish LAD flow, but no significant epicardial large vessel coronary disease. His diabetes is reasonably well controlled. Restarted Ranexa, which improved his chronic, recurrent chest pain. He is already on antiplatelet and statin. A tilt table test was also pursued, he had a syncope, preceded by vasovagal symptoms. This happened, despite he has a dual-chamber pacemaker in place already. The pacemaker settings were adjusted, now he will have more rate- responsive pacing. That now it is set at DDD 60/110 bpm. The MVP was turned off, as he felt even single skipped beats, now he is atrial paced, ventricular sensed with AP and OK interval set at 300 ms. -We had a long discussion about his symptoms and management options. His main issue appears to be vasovagal, he has prominent symptoms, due to even mildly painful stimuli. -We will continue to follow him, with the adjusted medical regimen and pacer settings. -If he remains symptomatic, we may try compression stockings, Midodrin. We discussed the importance to increase his fluid intake. -Continue PPI. -He will need to follow-up with Dr. Baptiste in 1 week, for a groin check. -Follow-up with Dr. Reid in 1 month. 35 minutes spent on disharge. Diagnosis - Discharge Diagnosis (1) Chest pain Status: Resolved (2) Hypertension Status: Chronic (3) Syncope, near Status: Acute (4) Diabetes mellitus Status: Chronic (5) JESSICA (obstructive sleep apnea) Status: Chronic (6) Status post placement of cardiac pacemaker Status: Chronic (7) Atypical chest pain Status: Acute (8) Diverticulosis Status: Acute (9) Gastroesophageal reflux disease Status: Acute (10) Hiatal hernia Status: Acute Discharge Plan - Discharge Data Disposition: Disch To Home/Self Care Condition at Discharge: Stable Discharge Diet: advance to your usual diet Activity: resume usual activities as tolerated, no lifting (for 3 days) Hygiene: no restrictions Weight Bearing at Discharge: full weight bearing, other Driving: not for (5 days) Contact your physician if you experience:: fever over 101, Difficulty voiding, Redness or swelling, Nausea/Vomiting, Shortness of breath, Bleeding, pain uncontrolled by pain medications - Discharge Medications New Ranolazine [Ranexa] 500 mg PO BID #180 tablet Continue metFORMIN [Glucophage] 500 mg PO BEDTIME Tamsulosin [Flomax] 0.4 mg PO BEDTIME Losartan [Cozaar] 50 mg PO QAM Fenofibrate [Tricor] 145 mg PO BEDTIME Atorvastatin [Lipitor] 10 mg PO QAM Metoprolol Succinate 25 mg PO BID Aspirin EC Tab 81 mg PO QAM Theophylline ER Cap (24 Hr) [Jaden-24] 200 mg PO BEDTIME Polyethylene Glycol Powder [Miralax] 17 gm PO BID powder glyBURIDE [Glyburide] 5 mg PO DAILY Amlodipine Besylate 5 mg PO DAILY Citalopram [CeleXA] 20 mg PO DAILY - Follow Up or Referral Follow Up: Vito Reid MD [Physician] - 1 Week (Follow up with dr. Baptiste in 1 week for groin check FU with dr. Reid in 1 month) - Forms/Instructions Exam - Constitutional Vitals: Period Temp Pulse Resp BP Sys/Oseguera Pulse Ox Last 24 Hr 97.1 F-98 F 60-65 16-20 87-131/51-69 91-98 General appearance: normal weight, no acute distress - Head Head exam: Present: normal inspection, normocephalic - Eye Eye exam: Absent: conjunctival injection Pupils: Absent: dilated - ENT ENT exam: Present: normal external ear exam - Neck Neck exam: Present: normal inspection - Respiratory Respiratory exam: Present: clear to auscultation bilaterally, accessory muscle use - Cardiovascular Cardiovascular exam: Present: regular rate and rhythm. Absent: systolic murmur - GI/Abdominal GI/Abdominal exam: Present: normal bowel sounds - Extremities Exam Extremities exam: Present: normal inspection, normal capillary refill. Absent: edema - Back Exam Back exam: Present: normal inspection - Neurological Exam Neurological exam: Present: alert, oriented X3 - Psychiatric Psychiatric exam: Present: normal affect, normal mood - Skin Skin exam: Present: normal color, warm. Absent: cyanosis Discharge Results Procedures and tests throughout hospitalization: Pending Orders 08/15/16 08:26 CL heart Routine Labs on day of discharge: Labs from last 24 hours 08/16/16 08/16/16 08/16/16 07:26 06:11 06:11 WBC 5.6 RBC 4.69 Hgb 13.2 L Hct 40.1 L MCV 85.5 L MCH 28 MCHC 32.9 RDW 14.5 Plt Count 180 D MPV 10.0 Neut % (Auto) 63.2 Lymph % (Auto) 24.7 [place] % (Auto) 9.2 Eos % (Auto) 2.0 Baso % (Auto) 0.7 Neut # (Auto) 3.5 Lymph # (Auto) 1.4 [place] # (Auto) 0.5 Eos # (Auto) 0.1 Baso # (Auto) 0.0 Immature Gran % 0.2 Nucleated RBC % 0.0 Immature Gran # 0.01 Nucleated RBCs # 0.00 Sodium 143 Potassium 3.9 Chloride 110 H Carbon Dioxide 24 Anion Gap 12.9 BUN 16 Creatinine 1.30 GFR Calculation 78 BUN/Creatinine Ratio 12.00 Glucose 66 L POC Glucose 54 L Calculated Osmolality 283.0 Calcium 8.0 L 08/15/16 08/15/16 21:08 17:09 WBC RBC Hgb Hct MCV MCH MCHC RDW Plt Count MPV Neut % (Auto) Lymph % (Auto) [place] % (Auto) Eos % (Auto) Baso % (Auto) Neut # (Auto) Lymph # (Auto) [place] # (Auto) Eos # (Auto) Baso # (Auto) Immature Gran % Nucleated RBC % Immature Gran # Nucleated RBCs # Sodium Potassium Chloride Carbon Dioxide Anion Gap BUN Creatinine GFR Calculation BUN/Creatinine Ratio Glucose POC Glucose 155 H 127 H Calculated Osmolality Calcium - Imaging and Cardiology Cardiology Procedure: image reviewed by me, report reviewed by me DS: Provider Date of admission: 08/12/16 17:39 Primary care physician: . No PCP Attending physician on admission: Vito Reid MD Consults: 08/12/16 19:47 Consult to Physician [CONS] Routine Comment: Consulting Provider: Timothy Yu Consult to Specialist Group: Gastroenterology When should Consulting Provider be notified: In am Person Notified: EDWARD Date Notified: 08/13/16 Time Notified: 08:55 Consult Notification Comment: [place] [facility] [place] Discharging clinician: Vito Reid MD Expected date of discharge: 08/16/16
== END 2016-08-16 13:16 | disposition home or self-care (01) ==
LOC: N.EDINP 16:12 → N.ED 16:12 → N.TELEN 18:35
PROVIDERS: ADMIT Internal Medicine Clinical Cardiac Electrophysiology; ATTEND Internal Medicine Clinical Cardiac Electrophysiology
PROC: CLCCHCL (ICD-10-PCS; 2016-08-15 14:45)

== ENCOUNTER 2016-09-10 12:18 | Observation (INO) ==
--- NOTE | 2016-09-10 13:47 | Emergency Department Note ---
Melissa Ruano Hilary, am scribing for, and in the presence of, Orville Thacker MD 13:47. Kirstie Ruano Charles R, MD, personally performed the services described in this documentation, ascribed by Ceci Torres in my presence, and it is both accurate and complete [id number] . Arrival - Arrival Chief Complaint: Chest Pain Stated Complaint: CHEST PAIN, CHILLS ED Nursing Triage Note: c/o squeezing pain in center of chest onset about 1100. pt states "i'm unsure if i passed out but when i came to myself i voided on myself." +sob and nausea. pain goes between shoulder blades. pt aslo c/o numbness on rt side of body Mode of Arrival: Wheelchair Limitations: No Limitations Source: Patient, RN Notes Reviewed Time Seen by Provider: 09/10/16 13:25 - History of Present Illness HPI Narrative: Pt is a 66 y/o white male presenting to the ED with c/o tightness in his chest which onset around 1100. Pt states that he believes he passed out and when he came to he had wet himself. He reports that he has a history of passing out, he had a tilt test done 2 weeks ago and passed out and had a Cath with no blockage found. 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 No other complaints or problems stated in the ED. Onset (ago): hour(s) Consistency: constant Severity: moderate Severity scale (1-10): 2 Quality: other (tightness) Allergies/Adverse Reactions: Allergies Allergy/AdvReac Type Severity Reaction Status Date / Time No Known Allergies Allergy Unverified 08/03/16 15:59 Home Medications: Home Medications Medication Instructions Recorded Confirmed Type Atorvastatin [Lipitor] 10 mg PO QAM 02/05/15 09/10/16 History Fenofibrate [Tricor] 145 mg PO BEDTIME 02/05/15 09/10/16 History Losartan [Cozaar] 25 mg PO QAM 02/05/15 09/10/16 History Tamsulosin [Flomax] 0.4 mg PO BEDTIME 02/05/15 09/10/16 History metFORMIN [Glucophage] 500 mg PO BEDTIME 02/05/15 09/10/16 History Aspirin EC Tab 81 mg PO QAM 01/10/16 09/10/16 History Theophylline ER Cap (24 Hr) 200 mg PO BEDTIME 01/19/16 09/10/16 History [Jaden-24] glyBURIDE [Glyburide] 5 mg PO DAILY 08/03/16 09/10/16 History Citalopram [CeleXA] 20 mg PO DAILY 08/13/16 09/10/16 History Ranolazine [Ranexa] 500 mg PO BID #180 tablet 08/16/16 09/10/16 Rx Metoprolol Tartrate Tab [Lopressor 50 mg PO BID 09/10/16 09/10/16 History Tab] Pantoprazole Tab [Protonix Tab] 40 mg PO DAILY 09/10/16 09/10/16 History Review of System - Review of System 12 point system: reviewed and no additional remarkable complaints except as stated - Review of System Constitutional: Absent: fever Cardiovascular: Present: chest pain, syncope Neurological: Present: other (no energy) Medical,Surgical,& Family Hx - Medical History Cardio: History of: Hypertension, Pacemaker (january 2015) HEENT: History of: Ear Problem (REPAIR OF RUPTURED EAR DRUM TO LEFT SIDE), Eye Problem (cataracts) Endocrine: History of: Diabetes Mellitus (NIDDM) (control with pill), Dyslipidemia Respiratory: History of: Obstructive Sleep Apnea Genitourinary: History of: Kidney Stones (about 27 years ago), Prostate Problems (enlarge prostate diagnosed 30 years ago) Gastrointestinal: History of: GI Problems (bowel rupture 3yrs ago) Musculoskeletal: History of: Back/Neck Problems (neck surgery) - Surgical History Thoracic Surgeries: Patient denies;: Organ Transplant, Lobectomy Neurologic Surgeries: Patient denies: Neurologic Surgery HEENT Surgeries: Surgical HX of: Thyroid Surgery, Tonsilectomy & Adenoidectomy Comment Only: Eye Surgery (catarack surgery) Abdominal Surgeries: Surgical HX of: Abdominal Surgery (repair of: Perforation with colostomy and subsequent reversal), Appendectomy, Cholecystectomy Reproductive Surgeries: Patient denies;: Prostate Surgery (enlarger prostate) Orthopedic Surgeries: Surgical HX of;: Orthopedic Surgery (left knee repair) - Family History Family History: Reports;: Family Cancer (father), Family Diabetes (mother), Family Heart Disease (mother), Family Hypertension (mother), Family Stroke ( father, mother) Denies;: Family Anesthesia Reaction, Family Psychiatric Problems - Social History Smoking Status: Former smoker Frequency of Alcohol Use: None Type of Drug Use: None Exam Vital Signs: Vital Signs Temperature 97.8 F 09/10/16 12:22 Pulse Rate 60 09/10/16 16:32 Respiratory Rate 20 09/10/16 16:32 Blood Pressure 119/78 09/10/16 16:32 O2 Sat by Pulse Oximetry 93 L 09/10/16 16:32 - General General appearance: alert, in no apparent distress - Head Head exam: Present: atraumatic, normocephalic - Eye Eye exam: Present: normal appearance, PERRL, EOMI - ENT ENT exam: Present: mucous membranes moist, TM's normal bilaterally. Absent: mucous membranes dry - Neck Neck exam: Present: full ROM, trachea midline. Absent: tenderness - Chest Chest inspection: Present: symmetric chest wall rise. Absent: tenderness - Respiratory Respiratory exam: Present: normal lung sounds bilaterally. Absent: respiratory distress - Cardiovascular Cardiovascular exam: Present: regular rate, normal rhythm, normal heart sounds. Absent: murmur, rubs, gallop - Abdominal Exam Abdominal exam: Present: soft, normal bowel sounds. Absent: distention, tenderness - Extremities Exam Extremities exam: Present: full ROM. Absent: tenderness - Back Exam Back exam: Present: full ROM. Absent: tenderness - Neurological Exam Neurological exam: Present: alert, oriented X3, CN II-XII intact. Absent: motor sensory deficit - Psychiatric Psychiatric exam: Present: normal affect, normal mood - Skin Skin exam: Present: warm, intact, normal color. Absent: dry (clammy), rash Results - Labs CBC & BMP: 09/10/16 13:57 09/10/16 13:57 Lab Results: I have reviewed the patients labs Labs: Laboratory Tests 09/10/16 13:57 WBC 7.6 RBC 5.23 Hgb 15.1 Hct 43.5 MCV 83.2 L MPV 9.5 L Baso % (Auto) 0.9 H Laboratory Tests 09/10/16 09/10/16 09/10/16 13:57 13:57 13:57 Sodium 139 Potassium 4.0 Chloride 106 Carbon Dioxide 23 BUN 15 Creatinine 1.30 Glucose 119 H Troponin I < 0.015 Urine pH 7.0 Ur Specific [place] 1.012 Urine Urobilinogen < 2.0 H Urine RBC <1 Urine WBC <1 Urine Opiates Screen Negative Ur Barbiturates Screen Negative Ur Phencyclidine Scrn Negative U Amphetamine/Methamph Negative U Benzodiazepines Scrn Negative U Cocaine Metab Screen Negative U Cannabinoids Screen Negative Serum Alcohol < 15 L Laboratory Tests 09/10/16 09/10/16 13:57 13:57 INR 1.1 PT Patient/Control Mix 11.7 Blood Type A POSITIVE Antibody Screen Negative - Diagnostic Findings Procedure: Chest x-ray: report reviewed by me (No acute cardiopulmonary disease) , CT: report reviewed by me (HEAD: No evidene of abnormality demonstrated) Disposition Clinical Impression: Vasovagal syncope, Chest pain Case discussed with: patient, patient's family Disposition: Still a Patient Condition: Stable Time of Disposition: 16:44
[2016-09-10 14:06] LABS: Basophils # 0.1 10*3/uL (0.0-0.2); Basophils % 0.9 % (0.0-0.8); Eosinophils # 0.1 10*3/uL (0.0-0.87); Eosinophils % 1.6 % (0.00-10.9); Hematocrit 43.5 VOL% (42.0-52.0); Hemoglobin 15.1 GM/DL (14.0-18.0); Immature Granulocytes % 0.7 %; Immature Granulocytes Absolute 0.05 #; Lymphocytes # 1.9 10*3/uL (1.4-4.0); Mean Corpuscular HGB Conc 34.7 GM/DL (32-36); Mean Corpuscular Hemoglobin 29 PG (27-34); Mean Corpuscular Volume 83.2 FL (87-102); Mean Platelet Volume 9.5 FL (9.6-12.0); Monocytes # 0.8 10*3/uL (0.11-0.8); Monocytes % 9.9 % (1.7-12.7); Neutrophils # 4.7 10*3/uL (1.4-7.4); Neutrophils % 61.9 % (38.7-73.9); Platelet Count 251 T/CUMM (130-400); Red Blood Count 5.23 MC/CUMM (3.8-5.5); Red Cell Distribution Width 14.2 % (9.3-17.3); White Blood Count 7.6 T/CUMM (4-12)
--- NOTE | 2016-09-10 14:11 | CT Report ---
CT brain Indication: Syncope Comparison: 03 Aug 2016 Technique: Axial CT imaging of the brain is performed without contrast with 3 mm increments. Findings: No evidence of hemorrhage, mass mass effect midline shift or acute infarct seen. The brain parenchyma attenuation and differentiation appears within normal limits. The ventricles and cisterns are normal in caliber. No cranial or skull base abnormality is identified. Impression: No evidence of abnormality demonstrated. This CT exam was performed using one or more the following dose reduction techniques: Automated exposure control, adjustment of the MA and/or KV according to patient size, or use of iterative reconstruction technique. PROCEDURE INTERPRETED AT [facility] [place] DEPARTMENT OF RADIOLOGY Final Report Signed by: Dr. Padilla Gilliam
--- NOTE | 2016-09-10 14:13 | XRay Report ---
XR chest 1V portable Indication: Shortness of breath Comparison: 12 Aug 2016 Findings: The heart and mediastinum are stable in size and configuration. Pacemaker device is unchanged in position. The pulmonary vascularity is normal in caliber. No lung infiltrates, effusions, pneumothorax or other abnormality is demonstrated. Impression: No acute cardiopulmonary disease. PROCEDURE INTERPRETED AT [facility] DEPARTMENT OF RADIOLOGY Final Report Signed by: Dr. Padilla Gilliam
[2016-09-10 14:41] LABS: Alanine Aminotransferase 29 U/L (16-61); Albumin 3.7 G/DL (3.4-5.0); Alkaline Phosphatase 55 U/L (45-117); Aspartate Amino Transferase 21 U/L (0-37); Blood Urea Nitrogen 15 MG/DL (7-18); Glucose 119 MG/DL (74-106); Magnesium 2.2 MG/DL (1.8-2.4); Osmolality,Calculated 278.5 MOS/KG (273-304); Sodium 139 MMOL/L (136-145)
[2016-09-10 14:42] LABS: Troponin I Only < 0.015 NG/ML (0.00-0.045)
[2016-09-10 15:01] LABS: Apearance,Urine CLEAR (Clear); Bilirubin,Urine Negative (Negative); Blood, Urine Negative (Negative); Glucose,Urine (UA) Negative (Negative); Ketones,Urine Negative (Negative); Nitrite,Urine Negative (Negative); Protein,Urine Negative; RBC,Urine <1 /HPF (0-4); Squamous Epithelial Cell,Urine Occasional /HPF (0-10); Urine Color Yellow (Yellow); Urine Specific Gravity 1.012 (1.001-1.035); Urine Urobilinogen < 2.0 EU/DL (0.2-1.0); WBC,Urine <1 /HPF (0-6)
[2016-09-10 15:08] LABS: Barbiturates Screen,Urine Negative (Negative); Benzodiazepines Screen,Urine Negative (Negative); Cannabinoid Screen,Urine Negative (Negative); Opiate Screen,Urine Negative (Negative); Phencyclidine Screen,Urine Negative (Negative)
[2016-09-10] MEDS ORDERED: ONDANSETRON 4 MG/2 ML VIAL ONE (15:28)
[2016-09-10] MEDS ORDERED: ONDANSETRON 4 MG/2 ML VIAL IV STA (15:29)
[2016-09-10 16:10] LABS: INR 1.1; PT Patient Result 11.7 SECS
[2016-09-10] MEDS ORDERED: SODIUM CHLORIDE 0.9% 1,000 ML IV ONE (17:41)
--- NOTE | 2016-09-10 17:46 | Hospitalist History & Physical ---
Assessment and Plan (1) Chest pain Status: Acute Assessment and plan: GI cocktail, normal heart cath on 08/15/16, protonix 40 mg po bid Current Visit: Yes (2) Vasovagal syncope Status: Acute Assessment and plan: need hospital bed for home to elevated HOB, check orthostatics, one liter NS bolus and stop flomax and arb. Current Visit: Yes (3) Diabetes mellitus Status: Chronic Assessment and plan: isc, Current Visit: No (4) JESSICA (obstructive sleep apnea) Status: Chronic Assessment and plan: ? cpap Current Visit: No History of Present Illness Chief complaint: syncope History of present illness: Mr. Davis is a 66 year old male presenting to the ED with c/o tightness in his chest which onset around 1100. Pt states that he believes he passed out and when he came to he had wet himself. He reports that he has a history of passing out, he had a tilt test done 2 weeks ago and passed out and had a Cath with no blockage found three weeks ago. 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 Will give him one bolus of NS, no more flomax and stop arb Home Medications Medication Instructions Recorded Confirmed Type Atorvastatin [Lipitor] 10 mg PO QAM 02/05/15 09/10/16 History Fenofibrate [Tricor] 145 mg PO BEDTIME 02/05/15 09/10/16 History Losartan [Cozaar] 25 mg PO QAM 02/05/15 09/10/16 History Tamsulosin [Flomax] 0.4 mg PO BEDTIME 02/05/15 09/10/16 History metFORMIN [Glucophage] 500 mg PO BEDTIME 02/05/15 09/10/16 History Aspirin EC Tab 81 mg PO QAM 01/10/16 09/10/16 History Theophylline ER Cap (24 Hr) 200 mg PO BEDTIME 01/19/16 09/10/16 History [Jaden-24] glyBURIDE [Glyburide] 5 mg PO DAILY 08/03/16 09/10/16 History Citalopram [CeleXA] 20 mg PO DAILY 08/13/16 09/10/16 History Ranolazine [Ranexa] 500 mg PO BID #180 tablet 08/16/16 09/10/16 Rx Metoprolol Tartrate Tab [Lopressor 50 mg PO BID 09/10/16 09/10/16 History Tab] Pantoprazole Tab [Protonix Tab] 40 mg PO DAILY 09/10/16 09/10/16 History Allergies Allergy/AdvReac Type Severity Reaction Status Date / Time No Known Allergies Allergy Unverified 08/03/16 15:59 Medical,Surgical,& Family Hx - Medical History Cardio: History of: Hypertension, Pacemaker (january 2015) HEENT: History of: Ear Problem (REPAIR OF RUPTURED EAR DRUM TO LEFT SIDE), Eye Problem (cataracts) Endocrine: History of: Diabetes Mellitus (NIDDM) (control with pill), Dyslipidemia Respiratory: History of: Obstructive Sleep Apnea Genitourinary: History of: Kidney Stones (about 27 years ago), Prostate Problems (enlarge prostate diagnosed 30 years ago) Gastrointestinal: History of: GI Problems (bowel rupture 3yrs ago) Musculoskeletal: History of: Back/Neck Problems (neck surgery) - Surgical History Thoracic Surgeries: Patient denies;: Organ Transplant, Lobectomy Neurologic Surgeries: Patient denies: Neurologic Surgery HEENT Surgeries: Surgical HX of: Thyroid Surgery, Tonsilectomy & Adenoidectomy Comment Only: Eye Surgery (catarack surgery) Abdominal Surgeries: Surgical HX of: Abdominal Surgery (repair of: Perforation with colostomy and subsequent reversal), Appendectomy, Cholecystectomy Reproductive Surgeries: Patient denies;: Prostate Surgery (enlarger prostate) Orthopedic Surgeries: Surgical HX of;: Orthopedic Surgery (left knee repair) - Family History Family History: Reports;: Family Cancer (father), Family Diabetes (mother), Family Heart Disease (mother), Family Hypertension (mother), Family Stroke ( father, mother) Denies;: Family Anesthesia Reaction, Family Psychiatric Problems - Social History Smoking Status: Former smoker Frequency of Alcohol Use: None Type of Drug Use: None Marital Status: Lives With:: Spouse Functional capacity: independent ambulation - Constitutional Constitutional: Present: fatigue, weakness. Absent: fever(s) - EENT Eyes: Absent: blurry vision, diplopia - Cardiovascular Cardiovascular: Present: chest pain at rest. Absent: dyspnea, dyspnea on exertion, edema - Respiratory Respiratory: Absent: dyspnea, dyspnea on exertion - Gastrointestinal Gastrointestinal: Present: nausea, vomiting. Absent: constipation, diarrhea - Psychiatric Psychiatric: Absent: anxiety, depression - Endocrine Endocrine: Present: fatigue, heat intolerance - Hematologic/Lymphatic Hematologic/Lymphatic: Absent: easy bleeding, easy bruising Exam - Constitutional Vitals: Period Temp Pulse Resp BP Sys/Oseguera Pulse Ox Last 24 Hr 97.8 F-97.8 F 60-86 16-28 109-136/72-91 93-100 General appearance: no acute distress, over weight - Head Head exam: Present: normal inspection, normocephalic - Eye Eye exam: Present: EOMI. Absent: scleral icterus Pupils: Present: MARIANELA, normal accommodation - ENT ENT exam: Present: normal exam, normal external ear exam - Neck Neck exam: Absent: lymphadenopathy, thyromegaly - Respiratory Respiratory exam: Present: clear to auscultation bilaterally. Absent: rhonchi, wheezes - Cardiovascular Cardiovascular exam: Present: regular rate and rhythm. Absent: systolic murmur - GI/Abdominal GI/Abdominal exam: Present: normal bowel sounds, soft. Absent: tenderness - Extremities Exam Extremities exam: Present: normal inspection, normal capillary refill - Neurological Exam Neurological exam: Present: alert, oriented X3, CN II-XII intact, reflexes normal. Absent: motor sensory deficit - Psychiatric Psychiatric exam: Present: normal affect, normal mood - Skin Skin exam: Present: normal color, warm Results - Labs CBC & BMP: 09/10/16 13:57 09/10/16 13:57 Lab Results: I have reviewed the past 24 hour labs - Diagnostic Findings Procedure: Chest x-ray: report reviewed by me (nothing acute ), CT: report reviewed by me (nothing acute )
--- NOTE | 2016-09-10 17:48 | Hospitalist History & Physical ---
History of Present Illness Chief complaint: chest pain History of present illness: Mr. Davis is a 66 year old white male Home Medications Medication Instructions Recorded Confirmed Type Atorvastatin [Lipitor] 10 mg PO QAM 02/05/15 09/10/16 History Fenofibrate [Tricor] 145 mg PO BEDTIME 02/05/15 09/10/16 History Losartan [Cozaar] 25 mg PO QAM 02/05/15 09/10/16 History Tamsulosin [Flomax] 0.4 mg PO BEDTIME 02/05/15 09/10/16 History metFORMIN [Glucophage] 500 mg PO BEDTIME 02/05/15 09/10/16 History Aspirin EC Tab 81 mg PO QAM 01/10/16 09/10/16 History Theophylline ER Cap (24 Hr) 200 mg PO BEDTIME 01/19/16 09/10/16 History [Jaden-24] glyBURIDE [Glyburide] 5 mg PO DAILY 08/03/16 09/10/16 History Citalopram [CeleXA] 20 mg PO DAILY 08/13/16 09/10/16 History Ranolazine [Ranexa] 500 mg PO BID #180 tablet 08/16/16 09/10/16 Rx Metoprolol Tartrate Tab [Lopressor 50 mg PO BID 09/10/16 09/10/16 History Tab] Pantoprazole Tab [Protonix Tab] 40 mg PO DAILY 09/10/16 09/10/16 History Allergies Allergy/AdvReac Type Severity Reaction Status Date / Time No Known Allergies Allergy Unverified 08/03/16 15:59 Medical,Surgical,& Family Hx - Medical History Cardio: History of: Hypertension, Pacemaker (january 2015) HEENT: History of: Ear Problem (REPAIR OF RUPTURED EAR DRUM TO LEFT SIDE), Eye Problem (cataracts) Endocrine: History of: Diabetes Mellitus (NIDDM) (control with pill), Dyslipidemia Respiratory: History of: Obstructive Sleep Apnea Genitourinary: History of: Kidney Stones (about 27 years ago), Prostate Problems (enlarge prostate diagnosed 30 years ago) Gastrointestinal: History of: GI Problems (bowel rupture 3yrs ago) Musculoskeletal: History of: Back/Neck Problems (neck surgery) - Surgical History Thoracic Surgeries: Patient denies;: Organ Transplant, Lobectomy Neurologic Surgeries: Patient denies: Neurologic Surgery HEENT Surgeries: Surgical HX of: Thyroid Surgery, Tonsilectomy & Adenoidectomy Comment Only: Eye Surgery (catarack surgery) Abdominal Surgeries: Surgical HX of: Abdominal Surgery (repair of: Perforation with colostomy and subsequent reversal), Appendectomy, Cholecystectomy Reproductive Surgeries: Patient denies;: Prostate Surgery (enlarger prostate) Orthopedic Surgeries: Surgical HX of;: Orthopedic Surgery (left knee repair) - Family History Family History: Reports;: Family Cancer (father), Family Diabetes (mother), Family Heart Disease (mother), Family Hypertension (mother), Family Stroke ( father, mother) Denies;: Family Anesthesia Reaction, Family Psychiatric Problems - Social History Smoking Status: Former smoker Frequency of Alcohol Use: None Type of Drug Use: None Marital Status: Lives With:: Spouse Functional capacity: independent ambulation - Constitutional Constitutional: Present: weakness. Absent: fever(s) - EENT Eyes: Present: loss of vision, requires corrective lense Ears: Absent: decreased hearing Exam - Constitutional Vitals: Period Temp Pulse Resp BP Sys/Oseguera Pulse Ox Last 24 Hr 97.8 F-97.8 F 60-86 16-28 109-136/72-91 93-100 Results - Labs CBC & BMP: 09/10/16 13:57 09/10/16 13:57
[2016-09-10] MEDS ORDERED: ALUM/MAG/SIMETH/LIDO VISC 1:1 30 ML BOTTLE PO ONE (17:49)
[2016-09-10] MEDS ORDERED: ONDANSETRON 4 MG/2 ML VIAL IV PRN (17:58)
[2016-09-10] MEDS ORDERED: MAGNESIUM HYDROXIDE SUSP 30 ML UDCUP PO PRN (17:58)
[2016-09-10] MEDS ORDERED: GLUCAGON 1 MG VIAL IM PRN (17:58)
[2016-09-10] MEDS ORDERED: DEXTROSE 50% 25 GM/50 ML VIAL IV PRN (17:58)
[2016-09-10] MEDS: PANTOPRAZOLE 40 MG TABLET PO SCH ×2 (19:02→20:57)
[2016-09-10] MEDS: SODIUM CHLORIDE 0.9% 1,000 ML IV SCH (19:03)
[2016-09-10] MEDS: METOPROLOL TARTRATE 25 MG TABLET PO SCH (20:57)
[2016-09-10] MEDS: INSULIN LISPRO 100 UNIT/ML SUBCUT SCH (20:57)
[2016-09-10] MEDS: RANOLAZINE 500 MG TABLET PO SCH (20:57)
[2016-09-10] MEDS ORDERED: FENOFIBRATE 145 MG TABLET PO SCH (21:00)
[2016-09-11] MEDS: SODIUM CHLORIDE 0.9% 1,000 ML IV SCH ×2 (04:27→11:01)
--- NOTE | 2016-09-11 06:02 | EKG Report ---
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
[2016-09-11 06:41] LABS: Risk Ratio 2.96
[2016-09-11] MEDS ORDERED: CITALOPRAM 20 MG TABLET PO SCH (09:00)
[2016-09-11] MEDS ORDERED: ASPIRIN EC 81 MG TABLET PO SCH (09:00)
[2016-09-11] MEDS ORDERED: glyBURIDE 5 MG TABLET PO SCH (09:00)
[2016-09-11] MEDS ORDERED: ATORVASTATIN 10 MG TABLET PO SCH (09:00)
[2016-09-11] MEDS: INSULIN LISPRO 100 UNIT/ML SUBCUT SCH ×3 (09:14→17:40)
[2016-09-11] MEDS: RANOLAZINE 500 MG TABLET PO SCH (09:15)
[2016-09-11] MEDS: METOPROLOL TARTRATE 25 MG TABLET PO SCH (09:17)
[2016-09-11] MEDS: PANTOPRAZOLE 40 MG TABLET PO SCH (09:17)
--- NOTE | 2016-09-11 10:40 | Discharge Summary ---
<Martha Molina - Last Filed: 09/11/16 10:24> Hospital Course - Hospital Course Hospital Course: Mr. Davis is a 66-year-old white male patient with a history of hypertension, diabetes, pacemaker placement who presented to the ED on 09/10 with complaints of chest tightness. Patient states that he believes that he passed out and when he came to he had wet himself. Patient admitted to a history of passing out and stated that he had a tilt test 2 weeks ago, passed out, and had a heart catheterization with no blockage found. Patient also reports that he was told that he has neurocardiogenic vasovagal. Patient was admitted to the hospitalist service and placed on telemetry overnight for observation. Patient received a bolus of normal saline and his losartan and flomax were stopped. Today the patient is stable and ready for discharge. Dr. Chun was consulted and will see him prior to discharge. Advised patient to seek second opinion from [facility] Neurology. Discharge Plan - Discharge Data Disposition: Disch To Home/Self Care - Discharge Medications New Esomeprazole Magnesium [Nexium] 20 mg PO BID #60 tablet.dr Continue metFORMIN [Glucophage] 500 mg PO BEDTIME Fenofibrate [Tricor] 145 mg PO BEDTIME Atorvastatin [Lipitor] 10 mg PO QAM Aspirin EC Tab 81 mg PO QAM glyBURIDE [Glyburide] 5 mg PO DAILY Ranolazine [Ranexa] 500 mg PO BID #180 tablet Citalopram [CeleXA] 20 mg PO DAILY Changed Metoprolol Tartrate Tab [Lopressor Tab] 25 mg PO BID #0 Discontinued Tamsulosin [Flomax] 0.4 mg PO BEDTIME Losartan [Cozaar] 25 mg PO QAM Theophylline ER Cap (24 Hr) [Jaden-24] 200 mg PO BEDTIME Pantoprazole Tab [Protonix Tab] 40 mg PO DAILY - Follow Up or Referral Follow Up: dr aleksandar [Other] - 1 Week Jose M Chun MD [Physician] - 2 Weeks - Forms/Instructions Exam - Constitutional Vitals: Period Temp Pulse Resp BP Sys/Oseguera Pulse Ox Last 24 Hr 97.2 F-98.3 F 60-86 16-28 109-142/66-92 93-100 Discharge Results Labs on day of discharge: Labs from last 24 hours 0609/11/16 09/11/16 Unknown 07:24 00:40 WBC RBC Hgb Hct MCV MCH MCHC RDW Plt Count MPV Neut % (Auto) Lymph % (Auto) Christian % (Auto) Eos % (Auto) Baso % (Auto) Neut # (Auto) Lymph # (Auto) Christian # (Auto) Eos # (Auto) Baso # (Auto) Immature Gran % Nucleated RBC % Immature Gran # Nucleated RBCs # INR PT Patient/Control Mix Sodium Potassium Chloride Carbon Dioxide Anion Gap BUN Creatinine GFR Calculation BUN/Creatinine Ratio Glucose POC Glucose 126 H Calculated Osmolality Calcium Magnesium Total Bilirubin AST ALT Alkaline Phosphatase Troponin I < 0.015 B-Natriuretic Peptide Total Protein Albumin Globulin Albumin/Globulin Ratio Triglycerides 195 H Cholesterol 151 LDL Cholesterol 72.0 VLDL Cholesterol 39.0 HDL Cholesterol 51 Heart Disease Risk Ratio 2.96 Urine Color Urine Appearance Urine pH Ur Specific [place] Urine Protein Urine Glucose (UA) Urine Ketones Urine Blood Urine Nitrate Urine Bilirubin Urine Urobilinogen Urine Leukocytes Urine RBC Urine WBC Ur Squamous Epith Cells Ur Culture Indicated? Urine Opiates Screen Ur Barbiturates Screen Ur Phencyclidine Scrn U Amphetamine/Methamph U Benzodiazepines Scrn U Cocaine Metab Screen U Cannabinoids Screen Serum Alcohol Blood Type Antibody Screen 09/10/16 09/10/16 09/10/16 21:00 20:11 19:00 WBC RBC Hgb Hct MCV MCH MCHC RDW Plt Count MPV Neut % (Auto) Lymph % (Auto) Christian % (Auto) Eos % (Auto) Baso % (Auto) Neut # (Auto) Lymph # (Auto) Christian # (Auto) Eos # (Auto) Baso # (Auto) Immature Gran % Nucleated RBC % Immature Gran # Nucleated RBCs # INR PT Patient/Control Mix Sodium Potassium Chloride Carbon Dioxide Anion Gap BUN Creatinine GFR Calculation BUN/Creatinine Ratio Glucose POC Glucose 159 H Calculated Osmolality Calcium Magnesium Total Bilirubin AST ALT Alkaline Phosphatase Troponin I < 0.015 < 0.015 B-Natriuretic Peptide Total Protein Albumin Globulin Albumin/Globulin Ratio Triglycerides Cholesterol LDL Cholesterol VLDL Cholesterol HDL Cholesterol Heart Disease Risk Ratio Urine Color Urine Appearance Urine pH Ur Specific [place] Urine Protein Urine Glucose (UA) Urine Ketones Urine Blood Urine Nitrate Urine Bilirubin Urine Urobilinogen Urine Leukocytes Urine RBC Urine WBC Ur Squamous Epith Cells Ur Culture Indicated? Urine Opiates Screen Ur Barbiturates Screen Ur Phencyclidine Scrn U Amphetamine/Methamph U Benzodiazepines Scrn U Cocaine Metab Screen U Cannabinoids Screen Serum Alcohol Blood Type Antibody Screen 09/10/16 09/10/16 09/10/16 13:57 13:57 13:57 WBC RBC Hgb Hct MCV MCH MCHC RDW Plt Count MPV Neut % (Auto) Lymph % (Auto) Christian % (Auto) Eos % (Auto) Baso % (Auto) Neut # (Auto) Lymph # (Auto) Christian # (Auto) Eos # (Auto) Baso # (Auto) Immature Gran % Nucleated RBC % Immature Gran # Nucleated RBCs # INR PT Patient/Control Mix Sodium Potassium Chloride Carbon Dioxide Anion Gap BUN Creatinine GFR Calculation BUN/Creatinine Ratio Glucose POC Glucose Calculated Osmolality Calcium Magnesium Total Bilirubin AST ALT Alkaline Phosphatase Troponin I B-Natriuretic Peptide 16 Total Protein Albumin Globulin Albumin/Globulin Ratio Triglycerides Cholesterol LDL Cholesterol VLDL Cholesterol HDL Cholesterol Heart Disease Risk Ratio Urine Color Urine Appearance Urine pH Ur Specific [place] Urine Protein Urine Glucose (UA) Urine Ketones Urine Blood Urine Nitrate Urine Bilirubin Urine Urobilinogen Urine Leukocytes Urine RBC Urine WBC Ur Squamous Epith Cells Ur Culture Indicated? Urine Opiates Screen Negative Ur Barbiturates Screen Negative Ur Phencyclidine Scrn Negative U Amphetamine/Methamph Negative U Benzodiazepines Scrn Negative U Cocaine Metab Screen Negative U Cannabinoids Screen Negative Serum Alcohol Blood Type A POSITIVE Antibody Screen Negative 09/10/16 09/10/16 09/10/16 13:57 13:57 13:57 WBC RBC Hgb Hct MCV MCH MCHC RDW Plt Count MPV Neut % (Auto) Lymph % (Auto) Christian % (Auto) Eos % (Auto) Baso % (Auto) Neut # (Auto) Lymph # (Auto) Christian # (Auto) Eos # (Auto) Baso # (Auto) Immature Gran % Nucleated RBC % Immature Gran # Nucleated RBCs # INR 1.1 PT Patient/Control Mix 11.7 Sodium 139 Potassium 4.0 Chloride 106 Carbon Dioxide 23 Anion Gap 14.0 BUN 15 Creatinine 1.30 GFR Calculation 79 BUN/Creatinine Ratio 11.00 Glucose 119 H POC Glucose Calculated Osmolality 278.5 Calcium 9.0 Magnesium 2.2 Total Bilirubin 0.60 AST 21 ALT 29 Alkaline Phosphatase 55 Troponin I < 0.015 B-Natriuretic Peptide Total Protein 7.0 Albumin 3.7 Globulin 3.3 Albumin/Globulin Ratio 1.1 Triglycerides Cholesterol LDL Cholesterol VLDL Cholesterol HDL Cholesterol Heart Disease Risk Ratio Urine Color Yellow Urine Appearance Clear Urine pH 7.0 Ur Specific [place] 1.012 Urine Protein Negative Urine Glucose (UA) Negative Urine Ketones Negative Urine Blood Negative Urine Nitrate Negative Urine Bilirubin Negative Urine Urobilinogen < 2.0 H Urine Leukocytes Negative Urine RBC <1 Urine WBC <1 Ur Squamous Epith Cells Occasional Ur Culture Indicated? Not indicated Urine Opiates Screen Ur Barbiturates Screen Ur Phencyclidine Scrn U Amphetamine/Methamph U Benzodiazepines Scrn U Cocaine Metab Screen U Cannabinoids Screen Serum Alcohol < 15 L Blood Type Antibody Screen 09/10/16 13:57 WBC 7.6 RBC 5.23 Hgb 15.1 Hct 43.5 MCV 83.2 L MCH 29 MCHC 34.7 RDW 14.2 Plt Count 251 MPV 9.5 L Neut % (Auto) 61.9 Lymph % (Auto) 25.0 Christian % (Auto) 9.9 Eos % (Auto) 1.6 Baso % (Auto) 0.9 H Neut # (Auto) 4.7 Lymph # (Auto) 1.9 Christian # (Auto) 0.8 Eos # (Auto) 0.1 Baso # (Auto) 0.1 Immature Gran % 0.7 Nucleated RBC % 0.0 Immature Gran # 0.05 Nucleated RBCs # 0.00 INR PT Patient/Control Mix Sodium Potassium Chloride Carbon Dioxide Anion Gap BUN Creatinine GFR Calculation BUN/Creatinine Ratio Glucose POC Glucose Calculated Osmolality Calcium Magnesium Total Bilirubin AST ALT Alkaline Phosphatase Troponin I B-Natriuretic Peptide Total Protein Albumin Globulin Albumin/Globulin Ratio Triglycerides Cholesterol LDL Cholesterol VLDL Cholesterol HDL Cholesterol Heart Disease Risk Ratio Urine Color Urine Appearance Urine pH Ur Specific [place] Urine Protein Urine Glucose (UA) Urine Ketones Urine Blood Urine Nitrate Urine Bilirubin Urine Urobilinogen Urine Leukocytes Urine RBC Urine WBC Ur Squamous Epith Cells Ur Culture Indicated? Urine Opiates Screen Ur Barbiturates Screen Ur Phencyclidine Scrn U Amphetamine/Methamph U Benzodiazepines Scrn U Cocaine Metab Screen U Cannabinoids Screen Serum Alcohol Blood Type Antibody Screen DS: Provider Date of admission: 09/10/16 16:57 Primary care physician: . No PCP Attending physician on admission: Ophelia Tsai MD Consults: 09/10/16 17:41 Consult to Physician [CONS] Routine Comment: reoccurring syncope with loss of urine now, Consulting Provider: Jose M Chun When should Consulting Provider be notified: Now Person Notified: Ghada Date Notified: 09/11/16 Time Notified: 08:50 09/10/16 17:54 Consult to Sleep Center [CONS] Routine Reason for Sleep Center: Sleep Center Physician Consult Comment: jessica, reoccuring syncope Discharging clinician: Martha Molina NP <Ophelia Tsai - Last Filed: 09/11/16 10:57> Hospital Course - Time spent with patient Time with patient DS: Less than 30 minutes (25 min) Diagnosis - Discharge Diagnosis (1) Chest pain Status: Acute (2) Vasovagal syncope Status: Acute (3) Diabetes mellitus Status: Chronic (4) JESSICA (obstructive sleep apnea) Status: Chronic Discharge Plan - Discharge Data Condition at Discharge: Stable Discharge Diet: diabetic diet Activity: resume usual activities as tolerated Hygiene: no restrictions Weight Bearing at Discharge: full weight bearing - Forms/Instructions Additional Discharge Instructions: discharge home after seen by Dr Chun Exam - Constitutional General appearance: no acute distress, over weight - Respiratory Respiratory exam: Present: clear to auscultation bilaterally. Absent: rhonchi, wheezes - Cardiovascular Cardiovascular exam: Present: regular rate and rhythm. Absent: systolic murmur - GI/Abdominal GI/Abdominal exam: Present: normal bowel sounds, soft. Absent: tenderness - Extremities Exam Extremities exam: Present: normal inspection, normal capillary refill
--- NOTE | 2016-09-11 15:37 | Neurology Consult Note ---
History of Present Illness History of present illness: 66 years old right-handed white gentleman with past medical history significant for hypertension, status post pacemaker placement in January 3 years ago admitted the hospital with passing out spells and chest pain. Cardiac workup has been negative. Patient reported that he has had passed out 4 times since July 31, 2016. Out of 42 times he has good urinary incontinence. Never had any tongue biting or generalized tonic clonic activity reported. Before that he passed out 3 years ago when they put the pacemaker in which resolved the issue. No history of head trauma, childhood seizure, febrile seizures, stroke or family history of seizures. Home Medications Medication Instructions Recorded Confirmed Type Atorvastatin [Lipitor] 10 mg PO QAM 02/05/15 09/10/16 History Fenofibrate [Tricor] 145 mg PO BEDTIME 02/05/15 09/10/16 History metFORMIN [Glucophage] 500 mg PO BEDTIME 02/05/15 09/10/16 History Aspirin EC Tab 81 mg PO QAM 01/10/16 09/10/16 History glyBURIDE [Glyburide] 5 mg PO DAILY 08/03/16 09/10/16 History Citalopram [CeleXA] 20 mg PO DAILY 08/13/16 09/10/16 History Ranolazine [Ranexa] 500 mg PO BID #180 tablet 08/16/16 09/10/16 Rx Esomeprazole Magnesium [Nexium] 20 mg PO BID #60 tablet. 09/11/16 Rx Metoprolol Tartrate Tab [Lopressor 25 mg PO BID #0 09/11/16 09/10/16 Rx Tab] Allergies Allergy/AdvReac Type Severity Reaction Status Date / Time No Known Allergies Allergy Unverified 08/03/16 15:59 12 point system: reviewed and no additional remarkable complaints except as stated Medical,Surgical,& Family Hx - Medical History Cardio: History of: Hypertension, Pacemaker (january 2015) HEENT: History of: Ear Problem (REPAIR OF RUPTURED EAR DRUM TO LEFT SIDE), Eye Problem (cataracts) Endocrine: History of: Diabetes Mellitus (NIDDM) (control with pill), Dyslipidemia Respiratory: History of: Obstructive Sleep Apnea Genitourinary: History of: Kidney Stones (about 27 years ago), Prostate Problems (enlarge prostate diagnosed 30 years ago) Gastrointestinal: History of: GI Problems (bowel rupture 3yrs ago) Musculoskeletal: History of: Back/Neck Problems (neck surgery) - Surgical History Cardiac Surgeries: Sugical HX of: Cardiac Catheterization Thoracic Surgeries: Patient denies;: Organ Transplant, Lobectomy Neurologic Surgeries: Patient denies: Neurologic Surgery HEENT Surgeries: Surgical HX of: Thyroid Surgery, Tonsilectomy & Adenoidectomy Comment Only: Eye Surgery (catarack surgery) Abdominal Surgeries: Surgical HX of: Abdominal Surgery (repair of: Perforation with colostomy and subsequent reversal), Appendectomy, Cholecystectomy Reproductive Surgeries: Patient denies;: Prostate Surgery (enlarger prostate) Orthopedic Surgeries: Surgical HX of;: Orthopedic Surgery (left knee repair) - Family History Family History: Reports;: Family Cancer (father), Family Diabetes (mother), Family Heart Disease (mother), Family Hypertension (mother), Family Stroke ( father, mother) Denies;: Family Anesthesia Reaction, Family Psychiatric Problems - Social History Smoking Status: Former smoker Frequency of Alcohol Use: None Type of Drug Use: None Exam - Constitutional Vitals: Period Temp Pulse Resp BP Sys/Oseguera Pulse Ox Last 24 Hr 97.2 F-98.3 F 60-86 18-20 109-147/66-92 93-98 Exam: GENERAL: Patient is in no acute distress. NECK: Neck is supple. There is no JVD. No carotid bruits present. No thyroid masses. CVS: First and second heart sounds are normal. There is no S3 present. Regular rate and rhythm. RESPIRATORY: Lungs are clear to auscultation without any rales or rhonchi. ABDOMEN: Soft and non-tender. Bowel sounds are present. There is no hepatosplenomegaly. EXT: There is no palpable edema. Peripheral pulses are present. Skin: No rashes Central Nervous system: General: Alert, awake and Oriented x 3 Speech: Fluent Comprehension: Intact and normal Facial expressions: Normal Cranial Nerves: CN1/Olfactory: Normal CN II/ Optic: Normal, Visual [place] unreliable CN III, and : MARIANELA & EOMI CN V: Normal & intact CN VII: face is symmetric CNVIII: Normal CN XI/X/XI/XII: Intact and Normal Motor: Bulk and Tone is normal. Strength in the right 5/5 Strength in the left 5/5 Sensory: Grossly intact for all the modalities of PP, LT and temp sense Reflexes: 1+ and symmetrical Cerebellar function: Normal finger to nose and heel to villagomez testing. Toes: Equivocal Gait: Normal heel to heel and toe to toe and tandem walk. Results - Labs CBC & BMP: 09/10/16 13:57 09/10/16 13:57 Assessment and Plan (1) Syncope Status: Acute Assessment and plan: Etiology is not clear. Differential would include cardiac, vasovagal, seizure. Needs further evaluation and can be done as an outpatient. Recommend to get routine EEG followed by long-term ambulatory video monitoring We will schedule all that as an outpatient Follow-up with me in 2 weeks No driving, swimming or operating heavy machinery for now We will hold off to any AEDs at this time Thank you for the consult Current Visit: No Specialty Discharge - Follow Up or Referrals Follow up with: dr aleksandar [Other] - 1 Week Jose M Chun MD [Physician] - 2 Weeks
[2016-09-11 17:30] VITALS: BP 118/68
--- NOTE | 2016-09-11 17:30 | Sleep Medicine Consult ---
Assessment and Plan (1) JESSICA (obstructive sleep apnea) Status: Chronic Assessment and plan: This patient has been less than compliant over the last several weeks based on documented compliance data. He had mild obstructive sleep apnea based on previous sleep evaluation. When he utilizes his CPAP, his sleep apnea is well controlled. I would think it would be low likelihood that even his recent noncompliance would be a major contributing factor to his recent syncopal episodes given the mild degree of his sleep apnea. Nevertheless, I told him I could not exclude that as a contributing factor and he absolutely needed to comply with his CPAP. We will schedule him for follow-up in the sleep clinic. Current Visit: No History of Present Illness Chief complaint: Sleep apnea, obstructive History of present illness: Mr. Davis is a 66 year old male known to sleep medicine. He was diagnosed with mild obstructive sleep apnea, having an AHI of 6.1 by sleep study in 2014. He underwent CPAP titration because of an [place] sleepiness score of 11 and concurrent medical history of hypertension and diabetes. He had excellent results with CPAP on 6 cm. He just had follow-up in the sleep clinic in February 2016 and had good compliance at that time of 73% for over 4 hours with an average AHI of 1.4. He has been admitted on this occasion for syncope and has been having issues with syncope in the last few months. Compliance download from his CPAP machine which he brought with him to the hospital shows less than ideal compliance at 26% usage right and a 23% compliance right for over 4 hours. When he uses his CPAP machine, his sleep apnea is well controlled. Home Medications Medication Instructions Recorded Confirmed Type Atorvastatin [Lipitor] 10 mg PO QAM 02/05/15 09/10/16 History Fenofibrate [Tricor] 145 mg PO BEDTIME 02/05/15 09/10/16 History metFORMIN [Glucophage] 500 mg PO BEDTIME 02/05/15 09/10/16 History Aspirin EC Tab 81 mg PO QAM 01/10/16 09/10/16 History glyBURIDE [Glyburide] 5 mg PO DAILY 08/03/16 09/10/16 History Citalopram [CeleXA] 20 mg PO DAILY 08/13/16 09/10/16 History Ranolazine [Ranexa] 500 mg PO BID #180 tablet 08/16/16 09/10/16 Rx Esomeprazole Magnesium [Nexium] 20 mg PO BID #60 tablet. 09/11/16 Rx Metoprolol Tartrate Tab [Lopressor 25 mg PO BID #0 09/11/16 09/10/16 Rx Tab] Allergies Allergy/AdvReac Type Severity Reaction Status Date / Time No Known Allergies Allergy Unverified 08/03/16 15:59 Review of systems: Only notable for rare occasional snoring around his CPAP. No significant daytime symptoms otherwise related to sleep apnea. He has mild sleepiness with an [place] sleepiness score of 10. Exam ([place]) H&P - Constitutional Vitals: Period Temp Pulse Resp BP Sys/Oseguera Pulse Ox Last 24 Hr 97.2 F-98.3 F 64-75 18-20 109-147/66-92 95-98 Exam: He is alert and responsive in no acute distress. Pupils equal round reactive to light and accommodation. Extraocular movements intact. Oropharynx with a class III Mallampati exam. Neck supple without adenopathy or thyromegaly. No supraclavicular adenopathy is noted. Chest with symmetrical breath sounds without focal wheeze, rhonchi, or rales. Cardiac exam reveals a regular rhythm without murmur or gallop. Abdomen soft nontender without palpable hepatosplenomegaly or mass. Extremities are without clubbing, cyanosis, or edema. Neurologically, he is grossly intact. Medical,Surgical,& Family Hx - Medical History Cardio: History of: Hypertension, Pacemaker (january 2015) HEENT: History of: Ear Problem (REPAIR OF RUPTURED EAR DRUM TO LEFT SIDE), Eye Problem (cataracts) Endocrine: History of: Diabetes Mellitus (NIDDM) (control with pill), Dyslipidemia Respiratory: History of: Obstructive Sleep Apnea Genitourinary: History of: Kidney Stones (about 27 years ago), Prostate Problems (enlarge prostate diagnosed 30 years ago) Gastrointestinal: History of: GI Problems (bowel rupture 3yrs ago) Musculoskeletal: History of: Back/Neck Problems (neck surgery) - Surgical History Cardiac Surgeries: Sugical HX of: Cardiac Catheterization Thoracic Surgeries: Patient denies;: Organ Transplant, Lobectomy Neurologic Surgeries: Patient denies: Neurologic Surgery HEENT Surgeries: Surgical HX of: Thyroid Surgery, Tonsilectomy & Adenoidectomy Comment Only: Eye Surgery (catarack surgery) Abdominal Surgeries: Surgical HX of: Abdominal Surgery (repair of: Perforation with colostomy and subsequent reversal), Appendectomy, Cholecystectomy Reproductive Surgeries: Patient denies;: Prostate Surgery (enlarger prostate) Orthopedic Surgeries: Surgical HX of;: Orthopedic Surgery (left knee repair) - Family History Family History: Reports;: Family Cancer (father), Family Diabetes (mother), Family Heart Disease (mother), Family Hypertension (mother), Family Stroke ( father, mother) Denies;: Family Anesthesia Reaction, Family Psychiatric Problems - Social History Smoking Status: Former smoker Frequency of Alcohol Use: None Type of Drug Use: None Results - Labs CBC & BMP: 09/10/16 13:57 09/10/16 13:57 Lab Results: I have reviewed the past 24 hour labs Labs: Cardiac isoenzymes were negative Specialty Discharge - Follow Up or Referrals Follow up with: dr aleksandar [Other] - 1 Week Jose M Chun MD [Physician] - 10/09/16 11:00 am
== END 2016-09-11 17:53 | disposition home or self-care (01) ==
LOC: N.ED 12:18 → N.EDINP 12:18 → N.TELES 17:38
PROVIDERS: ADMIT Internal Medicine; ATTEND Internal Medicine